=== PATIENT | male | born 1930 | race Caucasian/White ===

== ENCOUNTER 2016-08-28 10:31 | Emergency (ER) | payer MEDICARE, OTHER ==
--- NOTE | 2016-08-28 12:21 | RAD ---
HISTORY: Right-sided pain COMPARISONS: August 03, 2016 TECHNIQUE: Multiple transverse and longitudinal ultrasound images were obtained of the right lower extremity from the level of the common femoral vein inferiorly through to the infrapopliteal veins using grayscale, color Doppler, and spectral Doppler imaging with and without compression and with augmentation. Comparison images were obtained of the contralateral common femoral vein. FINDINGS: VEINS: The venous system of the right lower extremity is compressible throughout its course, with normal flow on color Doppler imaging and normal response to augmentation on spectral Doppler imaging. SOFT TISSUES: Unremarkable. OTHER FINDINGS: None. IMPRESSION: NO RIGHT LOWER EXTREMITY DEEP VEIN THROMBOSIS
[2016-08-28] MEDS ORDERED: Acetaminop/Codeine 30 MG TAB* 1 TAB (300 MG/30 MG) PO ONE (12:30)
[2016-08-28 12:41] LABS: Add Diff/Slide Review? Slide Review Added; Comments Flag Yes; Hematocrit 49 % (42-52); Hemoglobin 16.1 g/dl (14.0-18.0); Mean Corpuscular HGB Conc 33 g/dl (31-36); Mean Corpuscular Hemoglobin 28 pg (27-31); Mean Corpuscular Volume 85 fL (80-94); Mean Platelet Volume 8 um3 (7.4-10.4); Red Blood Count 5.78 10^6/ul (4.0-5.4); Red Cell Distribution Width 17 % (10.5-15); White Blood Count 9.9 10^3/ul (3.5-10.8)
[2016-08-28 12:54] LABS: Potassium 4.4 mmol/L (3.5-5.0)
--- NOTE | 2016-08-28 13:22 | RAD ---
HISTORY: History of cancer, pain with walking COMPARISONS: CT dated August 01, 2016 VIEWS: 7, Frontal view of the pelvis with frontal and frog-leg views of the right hip with frontal and lateral views of the right femur FINDINGS: BONE DENSITY: Normal. BONES: There is a lytic lesion of the femoral head measuring approximately 4.7 cm in size. JOINTS: There is moderate osteoarthritis of right hip with mild osteoarthritis of the right knee ALIGNMENT: There is no dislocation. SOFT TISSUES: Unremarkable. OTHER FINDINGS: Degenerative changes are noted of the spine IMPRESSION: LYTIC LESION OF THE RIGHT FEMORAL HEAD CONSISTENT WITH THE HISTORY OF METASTATIC DISEASE. OSTEOARTHRITIS. NO APPRECIABLE FRACTURE. IF THERE IS PERSISTENT CLINICAL CONCERN FOR FRACTURE, CONSIDER FURTHER EVALUATION WITH MRI OF THE AREA OF CONCERN
[2016-08-28 13:35] LABS: BUN/Creatinine Ratio 18.9 (8-20); Calcium 9.6 mg/dL (8.6-10.3); EGFR African American 66.6 (>60); EGFR Non-African American 51.8 (>60)
--- NOTE | 2016-08-28 13:56 | ED ---
Erin Rainey Claudia, scribed for Bozena Pratt MD on 08/28/16 at 1149 . Lower Extremity - HPI Summary HPI Summary: 85 year old male presents with right upper leg pain extending to right knee. Pt notes significant increase of pain after his PT session on Monday. PT notes that it has gotten progressively worse over the past few days. Pt notes the pain is located at the knee and at the groin. Pt states the pain is aggravated with movement and ambulation which impedes his walking. little discomfort when supine. No fall, no direct trauma. Pt saw WELDING OPERATOR at PCP and ave him Rx for topical salve and Aleive which has not alleviated his Sx. Pt denies fever, chills and mechanical fall. Pt took Aleve at 0730am. PMHx of kidney CA is noted with know mets to liver and right kidney noted. Pt denies any CA to his bones that he knows of. - History of Current Complaint Chief Complaint: EDExtremityLower Stated Complaint: RIGHT LEG PAIN Time Seen by Provider: 08/28/16 10:45 Hx Obtained From: Patient Mechanism Of Injury: Unknown Onset/Duration: Days Severity Initially: Moderate Severity Currently: Moderate Pain Intensity: 2 Pain Scale Used: 0-10 Numeric Timing: Intermittent, Lasting Days Location: Is Discrete @ - right thigh Character Of Pain: Aching Aggravating Factor(s): Standing, Ambulation, Movement Alleviating Factor(s): Rest Able to Bear Weight: No - Risk Factors Gout Risk Factors: Negative DVT Risk Factors: Negative Septic Arthritis Risk Factor: Negative - Allergies/Home Medications Allergies/Adverse Reactions: Allergies Allergy/AdvReac Type Severity Reaction Status Date / Time Penicillins Allergy DIZZY, Verified 04/27/16 09:45 DISORIENTED HAYFEVER-SEASONAL Allergy POST NASAL Uncoded 04/27/16 09:45 DRIP PMH/Surg Hx/FS Hx/Imm Hx Previously Healthy: Yes Endocrine/Hematology History: Denies: Hx Anticoagulant Therapy, Hx Diabetes, Hx Systemic Lupus Erythematosus, Hx Thyroid Disease Cardiovascular History: Reports: Hx Hypertension - meds in use Denies: Hx Congestive Heart Failure, Hx Pacemaker/ICD, Other Cardiovascular Problems/Disorders Respiratory History: Reports: Hx Pneumonia, Hx Seasonal Allergies, Other Respiratory Problems/Disorders - hx pneumonia in december GI History: Denies: Other GI Disorders History: Reports: Hx Benign Prostatic Hyperplasia, Hx Kidney Stones - 15 YEARS AGO NONE SINCE, Other Problems/Disorders - ENLARGED PROSTATE, LEFT NEPHRECTOMY, BPH, urgency Denies: Hx Dialysis, Hx Renal Disease Musculoskeletal History: Reports: Hx Bursitis - BILATERAL SHOULDER YEARS AGO, NO PROBLEM NOW Denies: Hx Arthritis, Hx Rheumatoid Arthritis, Hx Osteoporosis Sensory History: Reports: Hx Contacts or Glasses Denies: Hx Hearing Aid Opthamlomology History: Reports: Hx Contacts or Glasses Neurological History: Reports: Hx Headaches - not too bad, takes tylenol for them Psychiatric History: Denies: Hx Panic Disorder - Cancer History Cancer Type, Location and Year: kidney dx 10/2010 - Lt NEPHRECTOMY Hx Chemotherapy: Yes - current Hx Radiation Therapy: No Hx Palliative Cancer Treatment: No - Surgical History Surgery Procedure, Year, and Place: left nephrectomy 10/19 ;. inguinal hernia repair x 2 ;. powerport placement - [facility] [place] ; Hx Anesthesia Reactions: No - Immunization History Date of Tetanus Vaccine: Unk Date of Influenza Vaccine: Fall 2011 Infectious Disease History: No Infectious Disease History: Denies: Traveled Outside the [place] in Last 30 Days - Family History Known Family History: Positive: Hypertension - Social History Occupation: Retired Lives: With Family Alcohol Use: Daily Alcohol Amount: 1 glass wine Substance Use Type: Reports: None Smoking Status (MU): Former Smoker Type: Cigarettes Amount Used/How Often: 1 ppd Have You Smoked in the Last Year: No Review of Systems Negative: Fever, Chills Eyes: Negative Negative: Photophobia, Diplopia ENT: Negative Negative: Sore Throat Cardiovascular: Negative Negative: Chest Pain Respiratory: Negative Negative: Shortness Of Breath, Cough Gastrointestinal: Negative Negative: Vomiting, Diarrhea Genitourinary: Negative Positive: Other - right leg pain - femur to knee Skin: Negative Negative: Bruising Neurological: Negative Negative: Weakness Psychological: Normal All Other Systems Reviewed And Are Negative: Yes Physical Exam Triage Information Reviewed: Yes Vital Signs On Initial Exam: Initial Vitals Temp Pulse Resp BP Pulse Ox 97.9 F 71 20 136/69 99 08/28/16 10:37 08/28/16 10:37 08/28/16 10:37 08/28/16 10:37 08/28/16 10:37 Vital Signs Reviewed: Yes Appearance: Positive: Well-Appearing, No Pain Distress Skin: Positive: Warm, Skin Color Reflects Adequate Perfusion, Dry Head/Face: Positive: Normal Head/Face Inspection Eyes: Positive: Normal, EOMI, MORAIMA ENT: Positive: Pharynx normal, TMs normal Neck: Positive: Supple, Nontender, No Lymphadenopathy Respiratory/Lung Sounds: Positive: Clear to Auscultation, Breath Sounds Present , Decreased Breath Sounds Cardiovascular: Positive: Normal, RRR Abdomen Description: Positive: Nontender, No Organomegaly, Soft Bowel Sounds: Positive: Present Musculoskeletal: Positive: Normal, Other - + TTP medial aspect of right femur. + SLE with discomfort in proximal femur. + flex/ext knee + external rotation right hip with discomfort + flex/ext ankle Neurological: Positive: Normal, Sensory/Motor Intact, Alert, Oriented to Person Place, Time Psychiatric: Positive: Normal AVPU Assessment: Alert - [place] Coma Scale Best Eye Response: 4 - Spontaneous Best Motor Response: 6 - Obeys Commands Best Verbal Response: 5 - Oriented Coma Scale Total: 15 Diagnostics - Vital Signs Vital Signs Temp Pulse Resp BP Pulse Ox 08/28/16 10:37 97.9 F 71 20 136/69 99 - Laboratory Lab Results: Lab Results 08/28/16 08/28/16 Range/Units 12:30 12:30 WBC 9.9 (3.5-10.8) 10^3/ul RBC 5.78 H (4.0-5.4) 10^6/ul Hgb 16.1 (14.0-18.0) g/dl Hct 49 (42-52) % MCV 85 (80-94) fL MCH 28 (27-31) pg MCHC 33 (31-36) g/dl RDW 17 H (10.5-15) % Plt Count 180 (150-450) 10^3/ul MPV 8 (7.4-10.4) um3 Neut % (Auto) 76.5 (38-83) % Lymph % (Auto) 16.6 L (25-47) % [place] % (Auto) 4.2 (1-9) % Eos % (Auto) 1.8 (0-6) % Baso % (Auto) 0.9 (0-2) % Absolute Neuts (auto) 7.6 (1.5-7.7) 10^3/ul Absolute Lymphs (auto) 1.6 (1.0-4.8) 10^3/ul Absolute Monos (auto) 0.4 (0-0.8) 10^3/ul Absolute Eos (auto) 0.2 (0-0.6) 10^3/ul Absolute Basos (auto) 0.1 (0-0.2) 10^3/ul Absolute Nucleated RBC 0 10^3/ul Nucleated RBC % 0 Sodium 136 (133-145) mmol/L Potassium 4.4 (3.5-5.0) mmol/L Chloride 104 (101-111) mmol/L Carbon Dioxide 27 (22-32) mmol/L Anion Gap 7 (2-11) mmol/L BUN 25 H (6-24) mg/dL Creatinine 1.32 H (0.67-1.17) mg/dL Est GFR ( Amer) 66.6 (>60) Est GFR (Non-Af Amer) 51.8 (>60) BUN/Creatinine Ratio 18.9 (8-20) Glucose 115 H (70-100) mg/dL Calcium 9.6 (8.6-10.3) mg/dL Total Creatine Kinase 28 (10-223) U/L Result Diagrams: 08/28/16 12:30 08/28/16 12:30 Lab Statement: Any lab studies that have been ordered have been reviewed, and results considered in the medical decision making process. - Radiology FEMUR XRAY Xray Interpretation: Positive (See Comments) - LYTIC LESION OF THE RIGHT FEMORAL HEAD CONSISTENT WITH THE HISTORY OF METASTATIC DISEASE. OSTEOARTHRITIS. NO APPRECIABLE FRACTURE. IF THERE IS PERSISTENT CLINCAL CONCERN FOR FRACTURE, CONSIDER FURTHER EVALUATION WITH MRI OF THE AREA OF CONCERN. Radiology Interpretation Completed By: Radiologist HIP PELVIS XRAY Xray Interpretation: Positive (See Comments) - MPRESSION: LYTIC LESION OF THE RIGHT FEMORAL HEAD CONSISTENT WITH THE HISTORY OF METASTATIC DISEASE. OSTEOARTHRITIS. NO APPRECIABLE FRACTURE. IF THERE IS PERSISTENT CLINICAL CONCERN FOR FRACTURE, CONSIDER FURTHER EVALUATION WITH MRI OF THE AREA OF CONCERN < Electronically signed by Yasmany Liang MD in [place]> 08/28/16 1318 Dictated By: Yasmany Liang MD Dictated Date/Time: 08/28/16 1318 Transcribed Date/ Time: 08/28/16 1316 Radiology Interpretation Completed By: Radiologist - CT PELVIS CT CT Interpretation Completed By: Radiologist - CIRCUMSCRIBED LESION OF THE RIGHT FEMORAL HEAD EXTENDING TO THE ARTICUALR SURFACE MOST CONSISTENT WITH METASTATIC DISEASE GIVEN THE HISTORY. THERE IS MILD DEPRESSION OF THE ARTICUALR SURFACE ALONG THE LESION SUGGESTIVE OF A MINIMALLY DISPLACED FRACTURE. - Additional Comments Diagnostic Additional Comments: VENOUS DOPPLER STUDY: NO RIGHT LOWER EXTREMITY DEEP VEIN THROMBOSIS. Re-Evaluation - Re-Evaluation 1 Re-Evaluation Time: 13:16 Change: Improved - Pt notes pain is resolved REviewed imaging with pt - has lytic lesion in femoral head Spoke with Dr. Liang - will get CT for ?occult fx Pt states agreement with plan 2 Re-Evaluation Time: 14:41 Comment: Further care and transfer is discussed with pt and family. Lower Extremity Course/Dx - Course Assessment/Plan: Pt with progressive right hip pain since Wed No trauma. Pt with h/o CA. Pt taken alleve and topical ointment without relief - Diagnoses Provider Diagnoses: Metastatic bone cancer - Physician Notifications Discussed Care of Patient With: DISCUSSED CARE OF PT WITH DR. LIANG(RADIOLOGIST ) WHOM RECOMMENDS A CT. DISCUSSED CARE OF PATIENT WITH DR. PRITCHARD. 1420 SHE RECOMMENDS CONSULT WITH ORTHOPEDICS. PAGE TO [facility]TH[facility] IS MADE 14:22. DISCUSSED CARE OF PT WITH DR. SNEED. 1430. PER DR. NEWMAN PT NEEDS TO BE [facility]. 1440 PT AND PREFER [facility]. 1515 Call back from [facility] - Pt accepted to ED - Dr. Calix. Pt and updated and in agreement withplan Instructed by Provider To: Transfer - oncology ortho Discharge - Discharge Plan Condition: Stable Disposition: TRANS HIGHER LVL OF CARE FAC Discharge Disposition Comment: TRANSFER TO [facility] Referrals: Jake Cordova MD [Primary Care Provider] - The documentation as recorded by the Erin jeter Claudia accurately reflects the service I personally performed and the decisions made by me, Bozena Pratt MD.
--- NOTE | 2016-08-28 14:07 | RAD ---
HISTORY: Hip pain, lytic lesion COMPARISONS: CT dated August 01, 2016 TECHNIQUE: Multiple contiguous axial CT images are obtained of the pelvis, with coronal and sagittal multiplanar reconstructions, without intravenous contrast administration. FINDINGS: BONE DENSITY: There is diffuse osteopenia. BONES: There is a circumscribed lytic lesion involving the articular surface of the right femoral head measuring approximately 3.4 x 2.4 x 3.5 cm in size. There is depression of the articular surface overlying the lytic lesion suggestive of a minimally displaced fracture. JOINTS: There is moderate osteoarthritis of the right hip with mild osteoarthritis of the left hip MUSCULATURE: Unremarkable ALIGNMENT: There is no dislocation. SOFT TISSUES: There is stable soft tissue density within the right hemipelvis as described on the previous examination. The prostate gland is enlarged. There is atherosclerosis of the aorta. OTHER FINDINGS: None. IMPRESSION: CIRCUMSCRIBED LESION OF THE RIGHT FEMORAL HEAD EXTENDING TO THE ARTICULAR SURFACE MOST CONSISTENT WITH METASTATIC DISEASE GIVEN THE HISTORY OF MALIGNANCY. THERE IS MILD DEPRESSION OF THE ARTICULAR SURFACE ALONG THE LESION SUGGESTIVE OF A MINIMALLY DISPLACED FRACTURE.
[2016-08-28 16:36] VITALS: BP 146/76
== END 2016-08-28 16:35 | disposition short-term general hospital (02) ==
LOC: ED 10:31
DX: C41.9 Malignant neoplasm of bone and articular cartilage, unspecified (principal); M25.561 Pain in right knee; Z87.891 Personal history of nicotine dependence
CPT/HCPCS: 36415; 72192; 80048; 82550; 85025; 99283; A9270-GY

== ENCOUNTER 2016-09-05 09:40 | Inpatient (IN) | payer MEDICARE, OTHER ==
[2016-09-05] MEDS ORDERED: Magnesium Hydroxide LIQ* 30 ML UDC PO PRN (12:11)
[2016-09-05] MEDS ORDERED: oxyCODONE TAB* 5 MG TAB PO PRN (12:21)
[2016-09-05] MEDS: Heparin VIAL(*) 5000 UNITS/ML VIAL (FIVE THOUSAND) SUBCUT SCH ×2 (15:41→21:06)
[2016-09-05] MEDS: Latanoprost 0.005%* 2.5 ml BTL BOTH EYES SCH (18:26)
[2016-09-05] MEDS: Docusate CAP* 100 MG PO SCH (21:02)
[2016-09-05] MEDS: cloNIDine TAB* 0.1 MG PO SCH (21:02)
[2016-09-05] MEDS: Senna TAB PO PRN (21:03)
--- NOTE | 2016-09-05 23:38 | HP ---
ADMISSION HISTORY AND PHYSICAL: DATE OF ADMISSION: 09/05/16 REASON FOR ADMISSION: Hemiarthroplasty, right femur for pathologic fracture. HISTORY OF ILLNESS: Kermit Morales is an 85-year-old white male. He has a medical history significant for renal cell cancer, which was diagnosed 6 years ago. He had a left nephrectomy done 6 years ago. He follows up with Dr. Maryellen Toledo. He had a recent CAT of his chest, abdomen, and pelvis in July. The patient was having difficulty walking. He went to see his primary care doctor. Dr. Cordova, however, was out of town and he saw one of the nurse practitioners there. They thought that the pain might be muscular and so ordered physical therapy. The pain, however, continued to worsen with time. He presented to the emergency room August 28. In the emergency room, he had x-rays of his right hip as well as a CAT scan of his pelvis that showed metastatic lesions to his femur. He was transferred to [facility] in [place]. He was seen by Dr. Shay Dan. He was taken to the operating room on 08/31/16 and underwent a resection of the bone lesion and a right long stem cemented hemiarthroplasty. After surgery, the patient was noted to have hematuria. He had a Urology consult done. No special treatment was done. It was recommended that he follow up with Urology. The patient also was seen by physical therapy and occupational therapy. They noted he required a lot of assistance and was having trouble mobilizing. He was felt to have PT and OT needs. He is now being admitted for inpatient rehab , so he may return to independent living. PAST MEDICAL HISTORY: Significant for the aforementioned renal cell cancer. He has been tried on various immunotherapies and chemotherapies and has had a left nephrectomy. CURRENT MEDICATIONS: Include, 1. Norvasc. 2. Clonidine. 3. Heparin subcutaneously. 4. Flomax. 5. Xalatan eye drops. 6. Flonase. ALLERGIES: The patient has allergies listed to PENICILLIN. SOCIAL HISTORY: He is a nonsmoker. He has a half a glass of wine a day. He lives with his in a one-story house. He has a daughter and son living nearby. REVIEW OF SYSTEMS: The patient reports no current shortness of breath or chest pain. PHYSICAL EXAM: VITAL SIGNS: The patient's temperature is 98.0, blood pressure 154/48, pulse 96, respirations 18. HEENT: His extraocular movements are intact. Tongue is midline. NECK: Supple with no lymphadenopathy. LUNGS: Sound clear to auscultation bilaterally. HEART: Sounds are regular. S1 and S2 were audible. ABDOMEN: Soft and nontender. EXTREMITIES: His right hip has a wound, which is clean and dry. Peripheral pulses are intact. NEUROLOGIC: He is awake, alert, and oriented. Muscle strength 5/5 in both upper and lower extremities. His right lower extremity has 3/5 secondary to pain. FUNCTIONAL EXAM: He transfers with mod-assist of one person. ASSESSMENT: Status post right hemiarthroplasty for metastatic cancer. PLAN: Integrate him into a comprehensive and therapeutic rehab program with the following goals: 1. Physical therapy will work with the patient. They are going to work on functional transfer training, ambulation training with a walker. 2. Occupational therapy will see the patient, work on his activities of daily living, including toileting and toilet transfers. 3. Heparin for DVT prophylaxis. 4. Adequate analgesia. 5. His bowels will be regulated. 6. director of cloud services will be closely involved to make sure that any services and equipment the patient requires will be in place prior to discharge. 7. Advanced directives: The patient is a full code. His is his surrogate decision maker. 8. Oncology followup as needed. 9. Home with appropriate services. ESTIMATED LENGTH OF STAY: 12 to 14 days. [id number]/[facility] #: [id number] MTDD
[2016-09-06] MEDS: Acetaminophen TAB* 325 MG PO PRN ×3 (04:19→21:04)
[2016-09-06] MEDS: Heparin VIAL(*) 5000 UNITS/ML VIAL (FIVE THOUSAND) SUBCUT SCH ×3 (06:30→21:02)
[2016-09-06] MEDS: cloNIDine TAB* 0.1 MG PO SCH ×2 (08:44→21:02)
[2016-09-06] MEDS: Aspirin EC Low Dose* 81 MG TAB.EC PO SCH (08:44)
[2016-09-06] MEDS: Docusate CAP* 100 MG PO SCH ×2 (08:44→21:34)
[2016-09-06] MEDS: Fluticasone NASAL SPRAY 50MCG* 16 gm SPRAY BTL BOTH NARES SCH (08:44)
[2016-09-06] MEDS: amLODIPine TAB* 5 MG PO SCH (08:44)
[2016-09-06] MEDS: Tamsulosin CAP* 0.4 MG PO SCH (08:44)
--- NOTE | 2016-09-06 12:45 | PMRUTEAM ---
PMRU: Goals Current Status: Nursing: Current Status Skin Deviations [Right Upper Previous Access Point Chest] Skin Deviations [Right Leg] Rash Skin Deviations [Left Groin] Previous Access Point Skin Deviations [Right Hip] Incision Skin Deviation Description [ infusion port. Right Upper Chest] Physical Therapy: Current Status Bed Mobility Assistance Independent Transfer Moblility Assistance Supervision,Contact Guard Assist,Min Assist Transfer/Bed Mobility Rolling Walker Recommended Devices Ambulation Assistance Supervision,Contact Guard Assist Ambulation Assistive Devices Rolling Walker Number of Feet Patient 20' x 2 Ambulated Ambulation Comment Short step reciprocal type gait pattern. Stairs Assistance Not Tested Stairs Recommended Devices One Rail Number of Stairs 1 Occupational Therapy: Current Status Upper Body Dressing Supervision,Min Assist Lower Body Dressing Total Assist Bathing Mod Assist Toileting Total Assist Toilet Transfer Min Assist Eating Independent Social Work: Current Status Discharge Plan return home with home care svs and family support Potential for Family Training pt's family is involved and supportive Anticipated Discharge Home Destination Discharge With home care svs and family support Goals: Physical Therapy: Initial Goals Bed Mobility Assistance Independent Transfer Mobility Assistance Independent Transfer/Bed Mobility Rolling Walker Recommended Devices Ambulation Independent Ambulation Recommended Devices Rolling Walker Ambulation Distance 150 Stairs Assistance Independent Stair Recommended Devices One Rail Number of Stairs 2 Physical Therapy: Updated Goals Bed Mobility Assistance Independent Transfer Mobility Assistance Independent Transfer/Bed Mobility Rolling Walker Recommended Devices Ambulation Distance (ft) 150 Stairs Assistance Independent Stairs Recommended Devices One Rail Number of Stairs 3 Occupational Therapy: Initial Goals Goals to be Completed in (Days 7-10 ) Upper Body Bathing Routine Independent Lower Body Bathing Routine Modified Independent with Upper Body Dressing Routine Independent Lower Body Dressing Routine Modified Independent with Toilet Hygeine and Clothing Modified Independent with Management Routine Toilet Transfer Routine Modified Independent with Step-In Shower Transfer Modified Independent with Routine Tub Transfer Routine Modified Independent with Functional Transfers for ADL Modified Independent with Grooming Routine Independent Feeding Routine Independent Social Work: Goals Discharge Plan return home with home care svs and family support Potential for Family Training pt's family is involved and supportive Anticipated Discharge Home Destination Discharge With home care svs and family support Care Plan: Care Plan DVT Prophylaxis- Improve/Maintain Start: 09/05/16 21:18 Freq: QSHIFT Status: Active Target: Activity Type Activity Date Activity User E-Sign Co-Sign Detail Recorded Client Recorded Date Recorded By Document 09/06/16 00:40 [id number] 09/06/16 00:41 [id number] 09/06/16 00:40 PMRU Outcome: DVT Prophylaxis Outcome/Goals Remains Free of DVT TEDS Stockings on Every AM, Off at HS Discharge Planning - Improve/Maintain Start: 09/05/16 21:18 Freq: QSHIFT Status: Active Target: Activity Type Activity Date Activity User E-Sign Co-Sign Detail Recorded Client Recorded Date Recorded By Document 09/06/16 00:40 [id number] 09/06/16 00:41 [id number] 09/06/16 00:40 PMRU Outcome: Discharge Planning Update Patient Family No Outcome/Goals Demonstrates Understanding of Discharge Plan Education-Improve/Maintain Start: 09/05/16 21:18 Freq: QSHIFT Status: Active Target: Activity Type Activity Date Activity User E-Sign Co-Sign Detail Recorded Client Recorded Date Recorded By Document 09/06/16 00:40 [id number] 09/06/16 00:41 [id number] 09/06/16 00:40 PMRU Outcome: Education Outcome/Goals Demonstrate/ Verbalize Understanding of Written Discharge Instructions Demonstrates Skills Encourage Questions /GI-Improve/Maintain Start: 09/05/16 21:18 Freq: QSHIFT Status: Active Target: Activity Type Activity Date Activity User E-Sign Co-Sign Detail Recorded Client Recorded Date Recorded By Document 09/06/16 00:40 [id number] 09/06/16 00:41 [id number] 09/06/16 00:40 PMRU Outcome: Genitourinary/ Gastrointestinal Genitourinary- Outcome/Goals Maintain/ Achieve Urinary Continence Remain Free of Hospital- Acquired UTI Gastrointestinal-Outcome/Goals Maintain/ Achieve Bowel Regularity in Accordance with Pt's Baseline Prevent Constipation Laxatives as Ordered Mobility- Improve/Maintain Start: 09/05/16 15:06 Freq: QSHIFT Status: Active Target: Activity Type Activity Date Activity User E-Sign Co-Sign Detail Recorded Client Recorded Date Recorded By Document 09/05/16 15:06 [id number] 09/05/16 15:08 09/05/16 15:06 PMRU Outcome: Mobility Physical Therapy Evaluation and Yes Treatment Activity OOB with Assistance Yes WBAT Yes: r le Device Yes: rolling walker Assistance Yes: sammie Patient to be seen 5x/wk for 60-120 min/ Therex day for: Mobility Training Gait Training Outcome/Goals Maintain/ Achieve Baseline Mobility Status Improve Mobility Status Demonstrates Proper Use of Assistive Devices Free from Complications of Immobility Bed Mobility Yes: independent Transfers Yes: mod independent with rolling walker Gait x ft Yes: mod independent with rolling walker 150ft Up/Down Stairs Yes: 2 steps independent with rail With HEP Yes: independent recall thr precautions Safety- Improve/Maintain Start: 09/05/16 21:18 Freq: QSHIFT Status: Active Target: Activity Type Activity Date Activity User E-Sign Co-Sign Detail Recorded Client Recorded Date Recorded By Document 09/06/16 00:40 [id number] 09/06/16 00:41 [id number] 09/06/16 00:40 PMRU Outcome: Safety Outcome/Goals Remain Free of Injury or Harm Cooperates with Safety Measures for Least Restrictive Environment Prevent Falls/ Injury Equipment Needed Skin- Improve/Maintain Start: 09/05/16 21:18 Freq: QSHIFT Status: Active Target: Activity Type Activity Date Activity User E-Sign Co-Sign Detail Recorded Client Recorded Date Recorded By Document 09/06/16 00:40 [id number] 09/06/16 00:41 [id number] 09/06/16 00:40 PMRU Outcome: Skin Skin Risk Level Medium Skin Orders Dressing Change Turn/Position q2hr While in Bed Outcome/Goals Maintain/ Improve Skin Intergrity Surgical Incisions Healing Medicine Note: Length of Stay: 8 days Anticipated Discharge Destination: Home Tentative Discharge Date: September 14, 2016 Discharged to: Home
[2016-09-06] MEDS: Latanoprost 0.005%* 2.5 ml BTL BOTH EYES SCH (18:47)
[2016-09-07] MEDS: Heparin VIAL(*) 5000 UNITS/ML VIAL (FIVE THOUSAND) SUBCUT SCH ×3 (05:12→21:21)
[2016-09-07 07:54] LABS: Hematocrit 30 % (42-52); Hemoglobin 9.9 g/dl (14.0-18.0); Mean Corpuscular HGB Conc 33 g/dl (31-36); Mean Corpuscular Hemoglobin 28 pg (27-31); Mean Corpuscular Volume 86 fL (80-94); Mean Platelet Volume 8 um3 (7.4-10.4); Red Cell Distribution Width 16 % (10.5-15); White Blood Count 7.7 10^3/ul (3.5-10.8)
[2016-09-07 08:05] LABS: Albumin 2.9 g/dL (3.2-5.2); BUN/Creatinine Ratio 18.8 (8-20); Calcium 8.5 mg/dL (8.6-10.3); EGFR African American 90.7 (>60); EGFR Non-African American 70.5 (>60); Globulin 2.6 g/dL (2-4); Potassium 3.7 mmol/L (3.5-5.0); Total Bilirubin 0.9 mg/dL (0.2-1.0); Total Protein 5.5 g/dL (6.4-8.9)
[2016-09-07] MEDS: Fluticasone NASAL SPRAY 50MCG* 16 gm SPRAY BTL BOTH NARES SCH (08:13)
[2016-09-07] MEDS: Docusate CAP* 100 MG PO SCH ×2 (08:14→21:21)
[2016-09-07] MEDS: Tamsulosin CAP* 0.4 MG PO SCH (08:14)
[2016-09-07] MEDS: amLODIPine TAB* 5 MG PO SCH (08:14)
[2016-09-07] MEDS: Aspirin EC Low Dose* 81 MG TAB.EC PO SCH (08:14)
[2016-09-07] MEDS: cloNIDine TAB* 0.1 MG PO SCH ×2 (08:14→21:21)
[2016-09-07 08:31] LABS: Add Diff/Slide Review? Slide Review Added; Comments Flag Yes
--- NOTE | 2016-09-07 12:49 | PN ---
Progress Note - Progress Note SOAP: Subjective: []pain well controlled. tired this morning but worked hard with PT earlier in the day. Objective: Vital Signs Temp Pulse Resp BP Pulse Ox 98.7 F 84 18 144/55 96 09/07/16 05:15 09/07/16 05:15 09/07/16 05:15 09/07/16 05:15 09/07/16 08:16 sitting up in chair in NAD perr eomi op moist CTA bl s1 s2 nl port site clean soft nt +bs well healing hip trace LE edema A+O x 3, grossly nonfocal Laboratory Results - last 24 hr 09/07/16 09/07/16 07:12 07:12 WBC 7.7 RBC 3.50 L Hgb 9.9 L Hct 30 L MCV 86 MCH 28 MCHC 33 RDW 16 H Plt Count 241 MPV 8 Neut % (Auto) 62.2 Lymph % (Auto) 23.2 L [place] % (Auto) 9.1 H Eos % (Auto) 4.8 Baso % (Auto) 0.7 Absolute Neuts (auto) 4.8 Absolute Lymphs (auto) 1.8 Absolute Monos (auto) 0.7 Absolute Eos (auto) 0.4 Absolute Basos (auto) 0.1 Absolute Nucleated RBC 0 Nucleated RBC % 0 Sodium 132 L Potassium 3.7 Chloride 101 Carbon Dioxide 27 Anion Gap 4 BUN 19 Creatinine 1.01 Est GFR ( Amer) 90.7 Est GFR (Non-Af Amer) 70.5 BUN/Creatinine Ratio 18.8 Glucose 122 H Calcium 8.5 L Total Bilirubin 0.90 AST 15 ALT 11 Alkaline Phosphatase 58 Total Protein 5.5 L Albumin 2.9 L Globulin 2.6 Albumin/Globulin Ratio 1.1 Assessment: 85 yo M w metastatic RCC sp multiple lines of therapy, most recently on observation alone as symptomatic, now with metastatic disease to his right femur sp embolization and rodding. We discussed this at length. I have recommended consideration of palliative RT. I have taken the liberty to consult Dr. Cid. In terms of systemic therapy options, there are not many options left, though I do think it would be reasonable to try temsirolimus. I will review this with him in the office after he completes his RT. In terms of his urinary retention, he is pending a consultation from Dr. Mead. I would like to see him in my office at the [facility] on 09/16 at 820 am. Please provide him this apt on discharge.
[2016-09-07] MEDS: Latanoprost 0.005%* 2.5 ml BTL BOTH EYES SCH (18:22)
[2016-09-07] MEDS: diPHENhydraMINE PO* 25 MG PO PRN (21:23)
[2016-09-08] MEDS: Heparin VIAL(*) 5000 UNITS/ML VIAL (FIVE THOUSAND) SUBCUT SCH ×3 (05:33→20:58)
[2016-09-08] MEDS: Tamsulosin CAP* 0.4 MG PO SCH (08:06)
[2016-09-08] MEDS: cloNIDine TAB* 0.1 MG PO SCH ×2 (08:06→20:55)
[2016-09-08] MEDS: Docusate CAP* 100 MG PO SCH ×2 (08:06→20:56)
[2016-09-08] MEDS: Aspirin EC Low Dose* 81 MG TAB.EC PO SCH (08:06)
[2016-09-08] MEDS: amLODIPine TAB* 5 MG PO SCH (08:06)
[2016-09-08] MEDS: Fluticasone NASAL SPRAY 50MCG* 16 gm SPRAY BTL BOTH NARES SCH ×2 (08:07→21:00)
--- NOTE | 2016-09-08 15:16 | RADMED ---
CC: Dr. Toledo RADIATION ONCOLOGY INPATIENT CONSULTATION NOTE: DATE OF SERVICE: 09/07/16 REFERRING PHYSICIAN: Maryellen Toledo MD DIAGNOSIS: Metastatic renal cell carcinoma, AJCC stage IV. HISTORY OF PRESENT ILLNESS: Mr. Morales is an 85-year-old gentleman with renal cell carcinoma status post left nephrectomy in 2010. He developed metastatic disease for which, he has received systemic therapy, most recently nivolumab last year. He was managing reasonably well up unitl recently, but developed right hip pain, which became suddenly severe leading him to seek medical attention including pelvic CT from 08/28/16, which identified destructive lesion in the right femoral head with substantial cortical destruction. He was transferred to [place] and underwent surgery with stabilization what sounds like internal fixation, complete records requested. He has been admitted to the rehab unit, and is referred for discussion of postoperative radiation therapy for metastatic renal cell carcinoma involving the right hip. His pain is much better, but his mobility is substantially limited with this new problem. PAST MEDICAL HISTORY: Renal cell carcinoma, as in the history of present illness. MEDICATIONS: As per the inpatient records. ALLERGIES: PENICILLIN. SOCIAL HISTORY: He is accompanied by his daughter who is quite supportive. He is a nonsmoker and drinks alcohol occasionally. REVIEW OF SYSTEMS: A complete review of systems is obtained from the patient, negative for additional significant findings. PHYSICAL EXAMINATION: General: He is awake, alert, oriented, in no acute distress. Vital Signs: Temperature 97.5, pulse rate 85, respiratory rate 18, oxygen saturation 96% on room air, and blood pressure 130/48. HEENT: Normocephalic, atraumatic. Sclerae anicteric. Neck: Supple. Full range of motion. Midline trachea. No mass palpable in the neck or thyroid. Lungs: Clear. Cardiovascular: S1, S2. Regular. Abdomen: Soft and nontender. Extremities: Postsurgical right hip. PATHOLOGY AND RADIOLOGY: Reviewed, as in the history of present illness. ASSESSMENT AND PLAN: Mr. Morales is an 85-year-old gentleman with metastatic renal cell carcinoma and recent stabilizing surgery for destructive lesion in the right femoral head. I did review his history as well as the pathologic and radiographic findings, and discussed at some length with the patient, as he is already well informed and familiar. We reviewed the management for metastatic disease, and considerations for postoperative radiation therapy. I did explain the logistics and rationale for that treatment, risks, benefits, alternatives as well as the acute and long-term frequent and uncommon toxicities. I did answer the patient's and his daughter's questions to the best of my ability. He is inclined to proceed with radiation therapy as discussed, and will be scheduled for CT simulation to facilitate treatment planning. For his situation , I would recommend 300 cGy per fraction, tentative start date around 09/19/16. Thank you for giving me the opportunity to participate in the care of this very pleasant gentleman. [id number]/[facility] #: [id number] MTDD
[2016-09-08] MEDS: Latanoprost 0.005%* 2.5 ml BTL BOTH EYES SCH (18:23)
[2016-09-08] MEDS: Senna TAB PO PRN (20:55)
[2016-09-09] MEDS: diPHENhydraMINE PO* 25 MG PO PRN (00:05)
[2016-09-09] MEDS: Heparin VIAL(*) 5000 UNITS/ML VIAL (FIVE THOUSAND) SUBCUT SCH ×3 (05:38→21:30)
[2016-09-09] MEDS: Aspirin EC Low Dose* 81 MG TAB.EC PO SCH (08:40)
[2016-09-09] MEDS: Docusate CAP* 100 MG PO SCH ×2 (08:40→21:30)
[2016-09-09] MEDS: Tamsulosin CAP* 0.4 MG PO SCH (08:40)
[2016-09-09] MEDS: amLODIPine TAB* 5 MG PO SCH (08:40)
[2016-09-09] MEDS: cloNIDine TAB* 0.1 MG PO SCH ×2 (08:41→21:30)
[2016-09-09] MEDS: Latanoprost 0.005%* 2.5 ml BTL BOTH EYES SCH (18:28)
[2016-09-09] MEDS: Fluticasone NASAL SPRAY 50MCG* 16 gm SPRAY BTL BOTH NARES SCH (21:36)
[2016-09-10] MEDS: Acetaminophen TAB* 325 MG PO PRN ×2 (00:08→08:42)
[2016-09-10] MEDS: Heparin VIAL(*) 5000 UNITS/ML VIAL (FIVE THOUSAND) SUBCUT SCH ×3 (06:49→22:21)
[2016-09-10] MEDS: amLODIPine TAB* 5 MG PO SCH (08:57)
[2016-09-10] MEDS: Aspirin EC Low Dose* 81 MG TAB.EC PO SCH (08:57)
[2016-09-10] MEDS: Tamsulosin CAP* 0.4 MG PO SCH (08:58)
[2016-09-10] MEDS: cloNIDine TAB* 0.1 MG PO SCH ×2 (08:58→21:18)
[2016-09-10] MEDS: Docusate CAP* 100 MG PO SCH ×2 (08:59→21:19)
[2016-09-10] MEDS: Latanoprost 0.005%* 2.5 ml BTL BOTH EYES SCH (18:11)
[2016-09-10] MEDS: diPHENhydraMINE PO* 25 MG PO PRN (21:19)
[2016-09-10] MEDS: Fluticasone NASAL SPRAY 50MCG* 16 gm SPRAY BTL BOTH NARES SCH (21:21)
[2016-09-11] MEDS: Heparin VIAL(*) 5000 UNITS/ML VIAL (FIVE THOUSAND) SUBCUT SCH ×3 (05:06→21:23)
[2016-09-11] MEDS: amLODIPine TAB* 5 MG PO SCH (08:03)
[2016-09-11] MEDS: Tamsulosin CAP* 0.4 MG PO SCH (08:04)
[2016-09-11] MEDS: Docusate CAP* 100 MG PO SCH ×2 (08:04→20:17)
[2016-09-11] MEDS: Aspirin EC Low Dose* 81 MG TAB.EC PO SCH (08:04)
[2016-09-11] MEDS: cloNIDine TAB* 0.1 MG PO SCH ×2 (08:04→20:17)
[2016-09-11] MEDS: Latanoprost 0.005%* 2.5 ml BTL BOTH EYES SCH (17:37)
[2016-09-11] MEDS: diPHENhydraMINE PO* 25 MG PO PRN (20:17)
[2016-09-11] MEDS: Senna TAB PO PRN (20:17)
[2016-09-11] MEDS: Fluticasone NASAL SPRAY 50MCG* 16 gm SPRAY BTL BOTH NARES SCH (20:19)
[2016-09-12] MEDS: Heparin VIAL(*) 5000 UNITS/ML VIAL (FIVE THOUSAND) SUBCUT SCH ×3 (05:39→21:27)
[2016-09-12] MEDS: Docusate CAP* 100 MG PO SCH ×2 (08:49→21:27)
[2016-09-12] MEDS: Tamsulosin CAP* 0.4 MG PO SCH (08:49)
[2016-09-12] MEDS: cloNIDine TAB* 0.1 MG PO SCH ×2 (08:49→21:27)
[2016-09-12] MEDS: amLODIPine TAB* 5 MG PO SCH (08:49)
[2016-09-12] MEDS: Aspirin EC Low Dose* 81 MG TAB.EC PO SCH (08:49)
[2016-09-12] MEDS: Acetaminophen TAB* 325 MG PO PRN (11:34)
--- NOTE | 2016-09-12 15:50 | RAD ---
Indication: Metastatic renal cell carcinoma to the hip and pelvis. Comparison: August 28, 2016 CT. Technique: Radiation simulation CT. 2.5 mm contiguous axial sections were obtained through the pelvis and proximal femurs. Report: Artifact from RIGHT hip resurfacing prosthesis which is new compared with the August 28, 2016 exam. The prosthesis occupies the region of lytic metastasis on prior CT. Probable postsurgical seroma or hematoma insinuating between the RIGHT gluteus mary jo and medius muscles measuring up to 3.0 cm AP by 4.5 cm transverse compared with the prior exam. No additional suspicious osseous lesions within the [id number]. Enlarged prostate. Moderately distended urinary bladder with small focus of gas; correlate for recent instrumentation. Symmetric seminal vesicles. No abnormality of the visualized pelvic bowel loops. Negative for ascites. 2.5 x 4.6 cm RIGHT external iliac lymph node is unchanged compared with a CT from August 01, 2016. Smaller metastatic lesion noted in the anterior LEFT pelvis measuring up to 2.4 x 2.1 cm without significant change. IMPRESSION: Radiation simulation CT pelvis as described.
[2016-09-12] MEDS: Latanoprost 0.005%* 2.5 ml BTL BOTH EYES SCH (18:16)
[2016-09-12] MEDS: Fluticasone NASAL SPRAY 50MCG* 16 gm SPRAY BTL BOTH NARES SCH (21:26)
[2016-09-13] MEDS: Heparin VIAL(*) 5000 UNITS/ML VIAL (FIVE THOUSAND) SUBCUT SCH ×3 (05:44→21:22)
[2016-09-13] MEDS: cloNIDine TAB* 0.1 MG PO SCH ×2 (08:27→21:21)
[2016-09-13] MEDS: amLODIPine TAB* 5 MG PO SCH (08:27)
[2016-09-13] MEDS: Aspirin EC Low Dose* 81 MG TAB.EC PO SCH (08:27)
[2016-09-13] MEDS: Tamsulosin CAP* 0.4 MG PO SCH (08:27)
[2016-09-13] MEDS: Docusate CAP* 100 MG PO SCH ×2 (08:27→21:21)
--- NOTE | 2016-09-13 12:44 | PMRUTEAM ---
PMRU: Goals Current Status: Nursing: Current Status Skin Deviations [Buttocks] Other Skin Deviations [Right Upper Other Chest] Skin Deviations [Right Leg] Incision Skin Deviations [Left Groin] Previous Access Point Skin Deviations [Right Hip] Incision Skin Deviation Description [ redness Buttocks] Skin Deviation Description [ portacath Right Upper Chest] Skin Deviation Description [ No drainage or redness noted. Well approximated. Left Groin] Skin Deviation Description [ Incision, fluid filled blister next to it. bandage Right Hip] changed Bladder Current Status zarco Bowel Current Status bowel meds given Nutrition Current Status appetite good Medication Current Status needs reinforcement Physical Therapy: Current Status Bed Mobility Assistance Not Tested Transfer Moblility Assistance Supervision Transfer/Bed Mobility Rolling Walker Recommended Devices Ambulation Assistance Supervision Ambulation Assistive Devices Rolling Walker Number of Feet Patient 160' Ambulated Ambulation Comment Short step reciprocal type gait pattern. Stairs Assistance Supervision Stairs Recommended Devices Two Rails Number of Stairs 5 Curb Not Tested Occupational Therapy: Current Status Upper Body Dressing Independent Lower Body Dressing Min Assist Bathing Supervision Toileting Supervision Toilet Transfer Supervision Shower Transfer Supervision Eating Independent Rec Therapy: Current Status Summary of Assessment and RT assessment complete, pt. is aware of RT Clinical Impression services and open to leisure visits. Treatment Goals Pt. will engage in leisure activities while on the unit. Treatment Plan Provide RT services and encourage involvement. Social Work: Current Status Discharge Plan return home with home care svs and family support Potential for Family Training pt's attended family training on 09/12 Anticipated Discharge Home Destination Discharge With VNS and family support Nutrition: Current Status Monitoring Pt with metastatic lesions femur s/p embolization and rodding. Hx renal cell ca. Note plan for palliative radiation, some chemo. At present pt is eating well (100%) and meeting needs, bowels regular. BG mildly elevated (122) but not significant considering pt's status/age 85. No specific intervention anticipated if pt's oral intake remains stable. Goals: Physical Therapy: Initial Goals Bed Mobility Assistance Independent Transfer Mobility Assistance Independent Transfer/Bed Mobility Rolling Walker Recommended Devices Ambulation Independent Ambulation Recommended Devices Rolling Walker Ambulation Distance 150 Stairs Assistance Independent Stair Recommended Devices One Rail Number of Stairs 2 Physical Therapy: Updated Goals Bed Mobility Assistance Independent Transfer Mobility Assistance Independent Transfer/Bed Mobility Rolling Walker Recommended Devices Ambulation Distance (ft) 150 Stairs Assistance Independent Stairs Recommended Devices One Rail Number of Stairs 3 Occupational Therapy: Initial Goals Goals to be Completed in (Days 7-10 ) Upper Body Bathing Routine Independent Lower Body Bathing Routine Modified Independent with Upper Body Dressing Routine Independent Lower Body Dressing Routine Modified Independent with Toilet Hygeine and Clothing Modified Independent with Management Routine Toilet Transfer Routine Modified Independent with Step-In Shower Transfer Modified Independent with Routine Tub Transfer Routine Modified Independent with Functional Transfers for ADL Modified Independent with Grooming Routine Independent Feeding Routine Independent Nursing: Goals Bladder Goal independent Bowel Goal independent Nutrition Goal eating 100% of all meals Medication Goal independent with pill box Nutrition: Goals Intervention Goals 1. Maintain adequate oral intake to support weight maintenance, maintenance of lean body mass and post-op recovery. 2. Maintain bowel regularity w/o constipation/ diarrhea. Social Work: Goals Discharge Plan return home with home care svs and family support Potential for Family Training pt's attended family training on 09/12 Anticipated Discharge Home Destination Discharge With VNS and family support Care Plan: Care Plan ADL's - Improve/Maintain Start: 09/05/16 21:18 Freq: DAILY Status: Active Target: Activity Type Activity Date Activity User E-Sign Co-Sign Detail Recorded Client Recorded Date Recorded By Document 09/12/16 15:00 [id number] 09/12/16 15:00 [id number] 09/12/16 15:00 PMRU Outcome: ADL's/ADL Transfers Orders/Interventions Occupational Therapy Evaluation & Treatment Communication Tool in Patient Room Device Yes Patient to receive OT 5x/wk for 60-120 Therex min/day Self Care Management Group Therapy UE/LE ADL's with Assist Yes: Kristian ADL Transfers with Assist Yes: Kristian Toileting: Transfers,Clothing Management Yes: Kristian ,Hygeine w/Assist Progression Toward Outcome/Goals Progressing Coping/Psych-Improve/Maintain Start: 09/07/16 16:20 Freq: DAILY Status: Active Target: Activity Type Activity Date Activity User E-Sign Co-Sign Detail Recorded Client Recorded Date Recorded By Document 09/13/16 10:14 [id number] 09/13/16 10:16 [id number] 09/13/16 10:14 PMRU Outcome: Coping/Psychosocial Coping Outcome/Goals Verbalization of Sense of Control Over Health Status Utilization of Appropriate Problem Solving Techniques Utilization of Available Support Systems Psychosocial Outcome/Goals Maintain/ Improve Emotional Health Cooperate/ Participate in Plan Other Outcome/Goals Pt not happy with fact of zarco being in, wanted to talk to Dr. Butler and Dr Iris Mead. Dr. Butler aware . Progression Toward Outcome/Goals - Progressing Coping Progression Toward Outcome/Goals - Progressing Psychosocial DVT Prophylaxis- Improve/Maintain Start: 09/05/16 21:18 Freq: DAILY Status: Active Target: Activity Type Activity Date Activity User E-Sign Co-Sign Detail Recorded Client Recorded Date Recorded By Document 09/13/16 10:14 [id number] 09/13/16 10:16 [id number] 09/13/16 10:14 PMRU Outcome: DVT Prophylaxis Outcome/Goals Remains Free of DVT Complies with DVT Prophylaxis /Treatment TEDS Stockings on Every AM, Off at HS Progression Toward Outcome/Goals Progressing Discharge Planning - Improve/Maintain Start: 09/05/16 21:18 Freq: DAILY Status: Active Target: Activity Type Activity Date Activity User E-Sign Co-Sign Detail Recorded Client Recorded Date Recorded By Document 09/13/16 10:14 [id number] 09/13/16 10:16 [id number] 09/13/16 10:14 PMRU Outcome: Discharge Planning Update Patient Family No Outcome/Goals Demonstrates Understanding of Discharge Plan Progression Toward Outcome/Goals Progressing Education-Improve/Maintain Start: 09/05/16 21:18 Freq: DAILY Status: Active Target: Activity Type Activity Date Activity User E-Sign Co-Sign Detail Recorded Client Recorded Date Recorded By Document 09/13/16 10:14 [id number] 09/13/16 10:16 [id number] 09/13/16 10:14 PMRU Outcome: Education Outcome/Goals Demonstrate/ Verbalize Understanding of Written Discharge Instructions Demonstrates Skills Encourage Questions Other Outcome/Goals Hip precautions reviewed with pt by all staff Progression Toward Outcome/Goals Progressing Outcome/Goals Met Comment Reminded pt about HIP precautions /GI-Improve/Maintain Start: 09/05/16 21:18 Freq: DAILY Status: Active Target: Activity Type Activity Date Activity User E-Sign Co-Sign Detail Recorded Client Recorded Date Recorded By Document 09/13/16 10:14 [id number] 09/13/16 10:16 [id number] 09/13/16 10:14 PMRU Outcome: Genitourinary/ Gastrointestinal Genitourinary- Outcome/Goals Maintain/ Achieve Urinary Continence Remain Free of Hospital- Acquired UTI Gastrointestinal-Outcome/Goals Maintain/ Achieve Bowel Regularity in Accordance with Pt's Baseline Remain Free of Emesis Prevent Constipation Laxatives as Ordered Progression Toward Outcome/Goals - Progressing Progression Toward Outcome/Goals - GI Progressing Mobility- Improve/Maintain Start: 09/05/16 15:06 Freq: DAILY Status: Active Target: Activity Type Activity Date Activity User E-Sign Co-Sign Detail Recorded Client Recorded Date Recorded By Document 09/13/16 12:28 [id number] 09/13/16 12:28 [id number] 09/13/16 12:28 PMRU Outcome: Mobility Physical Therapy Evaluation and Yes Treatment Activity OOB with Assistance Yes WBAT Yes: r le Device Yes: rolling walker Assistance Yes: sammie Patient to be seen 5x/wk for 60-120 min/ Therex day for: Mobility Training Gait Training Outcome/Goals Maintain/ Achieve Baseline Mobility Status Improve Mobility Status Demonstrates Proper Use of Assistive Devices Free from Complications of Immobility Progression Toward Outcome/Goals Progressing Bed Mobility Yes: independent Transfers Yes: mod independent with rolling walker Gait x ft Yes: mod independent with rolling walker 150ft Up/Down Stairs Yes: 2 steps independent with rail With HEP Yes: independent recall thr precautions Safety- Improve/Maintain Start: 09/05/16 21:18 Freq: DAILY Status: Active Target: Activity Type Activity Date Activity User E-Sign Co-Sign Detail Recorded Client Recorded Date Recorded By Document 09/13/16 10:14 [id number] 09/13/16 10:16 [id number] 09/13/16 10:14 PMRU Outcome: Safety Outcome/Goals Remain Free of Injury or Harm Cooperates with Safety Measures for Least Restrictive Environment Prevent Falls/ Injury Equipment Needed Progression Toward Outcome/Goals Progressing Outcome/Goals Met Comment PA in place. Skin- Improve/Maintain Start: 09/05/16 21:18 Freq: DAILY Status: Active Target: Activity Type Activity Date Activity User E-Sign Co-Sign Detail Recorded Client Recorded Date Recorded By Document 09/13/16 10:14 [id number] 09/13/16 10:16 [id number] 09/13/16 10:14 PMRU Outcome: Skin Skin Risk Level Medium Skin Orders Dressing Change Air Mattress Turn/Position q2hr While in Bed Outcome/Goals Maintain/ Improve Skin Intergrity Free from Decubitus Surgical Incisions Healing Progression Toward Outcome/Goals Progressing Medicine Note: Length of Stay: 1 day Anticipated Discharge Destination: Home Tentative Discharge Date: 09/14/16 Discharged to: home
[2016-09-13 16:03] VITALS: BP 121/60
[2016-09-13] MEDS: Latanoprost 0.005%* 2.5 ml BTL BOTH EYES SCH (18:20)
[2016-09-13] MEDS: Fluticasone NASAL SPRAY 50MCG* 16 gm SPRAY BTL BOTH NARES SCH (21:22)
[2016-09-14 07:11] LABS: Hematocrit 36 % (42-52); Hemoglobin 11.5 g/dl (14.0-18.0); Mean Corpuscular HGB Conc 32 g/dl (31-36); Mean Corpuscular Hemoglobin 28 pg (27-31); Mean Corpuscular Volume 86 fL (80-94); Mean Platelet Volume 7 um3 (7.4-10.4); Red Blood Count 4.17 10^6/ul (4.0-5.4); Red Cell Distribution Width 17 % (10.5-15); White Blood Count 8.4 10^3/ul (3.5-10.8)
[2016-09-14 07:28] LABS: Albumin 3.4 g/dL (3.2-5.2); BUN/Creatinine Ratio 17.6 (8-20); Calcium 9.1 mg/dL (8.6-10.3); EGFR African American 75.1 (>60); EGFR Non-African American 58.4 (>60); Globulin 2.8 g/dL (2-4); Total Bilirubin 0.9 mg/dL (0.2-1.0); Total Protein 6.2 g/dL (6.4-8.9)
[2016-09-14] MEDS: Heparin VIAL(*) 5000 UNITS/ML VIAL (FIVE THOUSAND) SUBCUT SCH (08:11)
[2016-09-14] MEDS: Docusate CAP* 100 MG PO SCH (08:12)
[2016-09-14] MEDS: Tamsulosin CAP* 0.4 MG PO SCH (08:12)
[2016-09-14] MEDS: cloNIDine TAB* 0.1 MG PO SCH (08:12)
[2016-09-14] MEDS: amLODIPine TAB* 5 MG PO SCH (08:12)
[2016-09-14] MEDS: Aspirin EC Low Dose* 81 MG TAB.EC PO SCH (08:12)
--- NOTE | 2016-09-15 04:18 | DS ---
DISCHARGE SUMMARY: DATE OF ADMISSION: 09/05/16 DATE OF DISCHARGE: 09/14/16 DISCHARGE DIAGNOSES: 1. Pathologic fracture, right hip. 2. Hemiarthroplasty of same. 3. Renal cell cancer. 4. Status post left nephrectomy, remote. 5. Urinary retention. HISTORY OF ILLNESS AND HOSPITAL COURSE: For complete history of the events leading up to his rehab stay, please see the history and physical dictated by me on 09/05/16. While on the rehab unit, the patient did have followup from his oncologist, Dr. Maryellen Toledo. Dr. Toledo had ordered Dr. Cid from Radiation Oncology to see the patient. It is anticipated that 10 radiation treatments to his right thigh will begin 09/19/16. The patient's wound healed well while on the rehab unit. His yesica were removed without incidence. The patient's pain was well controlled while on the rehab unit. He was maintained on heparin for DVT prophylaxis. The patient was seen by both Physical and Occupational Therapy and made good gains with both disciplines. With Physical Therapy at the time of admission, the patient required supervision for transfers. He was able to ambulate with supervision. With Occupational Therapy, he required contact guard to min assist for toileting and toilet transfers. By the time of discharge, the patient was independent in transfers, independent ambulating 150 feet, independent in going up and down 5 stairs, independent in toileting and toilet transfers. He required minimal amount of assistance for putting his socks on for lower body dressing. The patient's was brought in for family training prior to discharge. The patient was discharged home, 09/14/16. Also of note, the patient arrived to the rehab unit with a Kern after he had failed a voiding trial at [facility]. His Kern had to be reinserted. He was started on Flomax at [facility]. A second voiding trial was done on the rehab unit. He was unable to void after 18 hours and his Kern catheter was replaced. He will continue on Flomax and will follow up with Dr. Mead. He was discharged home, . DISCHARGE DIET: Regular. DISCHARGE MEDICATIONS: 1. Aspirin 81 mg daily. 2. Xalatan eye drops one drop to both eyes every evening. 3. Flomax 0.4 mg daily. 4. Norvasc 5 mg daily. 5. Clonidine 0.1 mg orally twice a day. 6. Oxycodone 5 mg tablets every 4 hours as needed. SERVICES AFTER DISCHARGE: Through the visiting nurse service, he will have home nursing, home health aide, home physical therapy, home occupational therapy. FOLLOWUP: The patient will follow up with his primary care doctor, Dr. Cordova , as well as with his oncologist, Dr. Maryellen Toledo, and his orthopedic surgeon , Dr. Shay Dan, who will call his home for an appointment. CC: Dr. Jake Cordova; Dr. Maryellen Toledo* [id number] #: [id number] MTDD
== END 2016-09-14 11:40 | disposition home or self-care (01) | DRG 560 ==
LOC: PMRU 11:40 → UNDOADMIN 11:40 → UNDODISIN 09-14 11:40
PROVIDERS: ADMIT Physical Medicine & Rehabilitation; ATTEND Physical Medicine & Rehabilitation
PROC: F07Z5ZZ Bed Mobility Treatment (ICD-10-PCS; principal; 2016-09-05)
PROC: F07Z9ZZ Gait Training/Functional Ambulation Treatment (ICD-10-PCS; 2016-09-05)
PROC: F07Z8ZZ Transfer Training Treatment (ICD-10-PCS; 2016-09-05)
PROC: F08Z0ZZ Bathing/Showering Techniques Treatment (ICD-10-PCS; 2016-09-05)
PROC: F08Z1ZZ Dressing Techniques Treatment (ICD-10-PCS; 2016-09-05)
PROC: F08Z3ZZ Feeding/Eating Treatment (ICD-10-PCS; 2016-09-05)
DX: M84.451D Pathological fracture, right femur, subsequent encounter for fracture with routine healing (principal); C64.9 Malignant neoplasm of unspecified kidney, except renal pelvis; C79.51 Secondary malignant neoplasm of bone; Z47.1 Aftercare following joint replacement surgery; R33.9 Retention of urine, unspecified; Z96.641 Presence of right artificial hip joint; Z90.5 Acquired absence of kidney; Z88.0 Allergy status to penicillin
CPT/HCPCS: 36415; 77014; 77280; 80053; 85025; 99233; A9270-GY; J1644

== ENCOUNTER 2016-10-17 12:50 | Inpatient (IN) | payer MEDICARE, OTHER ==
[2016-10-17] MEDS ORDERED: NS 0.9% 1000 ML* 2,000 ML IV ONE (13:00)
--- NOTE | 2016-10-17 13:32 | RAD ---
Indication: Weakness with fever. Single frontal view of the chest performed at 1310 hours was reviewed. Comparison is made with previous exam dated December 05, 2015. No mediastinal shift is noted. Heart is of normal size and configuration. Central catheter is in place. Lung tejeda appear hyperinflated. No alveolar consolidation is noted. IMPRESSION: NO ACTIVE CARDIOPULMONARY DISEASE IS NOTED.
[2016-10-17 13:38] LABS: Hematocrit 38 % (42-52); Hemoglobin 12.7 g/dl (14.0-18.0); Mean Corpuscular HGB Conc 33 g/dl (31-36); Mean Corpuscular Hemoglobin 27 pg (27-31); Mean Corpuscular Volume 82 fL (80-94); Mean Platelet Volume 8 um3 (7.4-10.4); Red Blood Count 4.69 10^6/ul (4.0-5.4); Red Cell Distribution Width 17 % (10.5-15); White Blood Count 9.5 10^3/ul (3.5-10.8)
[2016-10-17 13:49] LABS: Urine Bacteria 1+ (Absent); Urine Bilirubin Negative (Negative); Urine Glucose Negative (Negative); Urine Nitrite Positive (Negative)
[2016-10-17 13:56] LABS: Albumin 3.5 g/dL (3.2-5.2); Calcium 8.9 mg/dL (8.6-10.3); EGFR African American 69.7 (>60); EGFR Non-African American 54.2 (>60); Globulin 2.8 g/dL (2-4); Magnesium 1.9 mg/dL (1.9-2.7); Potassium 3.7 mmol/L (3.5-5.0); Total Bilirubin 0.4 mg/dL (0.2-1.0); Total Protein 6.3 g/dL (6.4-8.9)
[2016-10-17 13:57] LABS: Troponin I 0.01 ng/mL (<0.04)
[2016-10-17 14:20] LABS: TSH (Thyroid Stimulating Horm) 3.07 mcIU/mL (0.34-5.60)
[2016-10-17] MEDS ORDERED: Ciprofloxacin 400MG IVPREMIX(* 400 MG/200 ML BAG IVPB ONE (14:21)
[2016-10-17] MEDS ORDERED: Clobetasol 0.05% OINT* 30 GM TUBE TOPICAL PRN (15:43)
[2016-10-17] MEDS: Metoprolol Tartrate TAB* 50 mg PO SCH (16:27)
[2016-10-17] MEDS: Tamsulosin CAP* 0.4 MG PO SCH (16:28)
[2016-10-17] MEDS: NS 0.9% 1000 ML* 1,000 ML IV SCH (16:28)
[2016-10-17] MEDS: Psyllium PAK PO SCH (17:41)
[2016-10-17] MEDS ORDERED: Cetirizine* 10 MG TAB PO PRN (18:00)
[2016-10-17] MEDS: Heparin VIAL(*) 5000 UNITS/ML VIAL (FIVE THOUSAND) SUBCUT SCH (21:44)
[2016-10-17] MEDS: Latanoprost 0.005%* 2.5 ml BTL BOTH EYES SCH (21:44)
[2016-10-17] MEDS: Fluticasone NASAL SPRAY 50MCG* 16 gm SPRAY BTL BOTH NARES SCH (21:44)
--- NOTE | 2016-10-17 22:05 | RAD ---
INDICATION: Urinary tract infection. COMPARISON: Comparison is made with a prior CT of the abdomen and pelvis from October 13, 2016. TECHNIQUE: Multiple real-time images of the right kidney were obtained. FINDINGS: The right kidney is normal in size shape and echogenicity. The kidney measured 11.0 x 5.6 x 4.5 cm. No significant focal abnormality or hydronephrosis was present. IMPRESSION: NEGATIVE EXAM.
--- NOTE | 2016-10-17 22:07 | RAD ---
INDICATION: Urinary tract infection. COMPARISON: Correlation is made with a prior renal ultrasound of the same date. TECHNIQUE: Multiple real-time images of the urinary bladder were obtained. FINDINGS: There is a Griffin catheter within the bladder. The bladder is otherwise completely empty. The ureteral jets are visible in this empty bladder. IMPRESSION: GRIFFIN CATHETER IN PLACE, URINARY BLADDER COMPLETELY EMPTY.
[2016-10-18] MEDS: Acetaminophen TAB* 325 MG PO PRN ×2 (00:14→20:23)
[2016-10-18] MEDS: NS 0.9% 1000 ML* 1,000 ML IV SCH ×2 (02:45→14:24)
[2016-10-18] MEDS: Ciprofloxacin 400MG IVPREMIX(* 400 MG/200 ML BAG IVPB SCH ×2 (02:49→15:13)
--- NOTE | 2016-10-18 03:09 | HP ---
HISTORY AND PHYSICAL: DATE OF ADMISSION: 10/17/16 TIME OF EVALUATION: 3:10 p.m. PRIMARY CARE PROVIDER: Dr. Cordova. ONCOLOGIST: Dr. Toledo. UROLOGIST: Dr. Perdomo. CHIEF COMPLAINT: "I'm weak." HISTORY OF PRESENT ILLNESS: Mr. 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 The patient was admitted to [facility] in [place] in August. He had complaints of right hip pain and was found to have metastatic lesions to his femur. On August 31, he underwent a resection of the bone lesion and a right long stem cemented hemiarthroplasty. He was admitted to [facility] from September 05 to September 14 and as per his , he was doing fairly well at home, able to ambulate with his walker, his pain was well controlled. He had very good appetite. A week ago, he started to have episodes of dry cough, but otherwise was feeling well. For the past 2 days, she noticed that he seemed to be weaker and last night, she felt that he was warm and measured a temperature of 99. So, she gave him some Tylenol. This morning, he was able to ambulate to their room, to the dining room. He had a good breakfast, but when she tried to walk with him back to his recliner, he became very weak and could not move further. So, she helped him lower himself to the floor. There was no loss of consciousness and no significant trauma. He was unable to get up off the bed and EMS was summoned. In the emergency room, his workup was suggestive of a urinary tract infection and the hospitalist service was called for further evaluation. PAST MEDICAL HISTORY: 1. Metastatic clear cell carcinoma of the kidney, status post left radical nephrectomy in October 2010 with metastatic disease (multiple hepatic lesions, significant retroperitoneal lymphadenopathy, multiple lung lesions). The patient is off chemotherapy at this point, but he was treated with everolimus, Avastin, pazopanib, nivolumab. As per Dr. Toledo's notes, he had reactions to medications and the plan at this point is just to continue to monitor him. 2. Status post pathologic right hip fracture, status post surgical repair. As per Dr. Toledo's notes, margins were negative and it was felt he would not benefit from adjuvant radiation therapy. 3. CKD stage 3. 4. Coronary artery disease. 5. GERD. 6. Hypertension. 7. BPH with a chronic Kern. This catheter was last changed 2 weeks ago by VNS. MEDICATION LIST: 1. Amlodipine 5 mg p.o. daily. 2. Aspirin 81 mg p.o. daily. 3. Clobetasol 0.05% ointment topical b.i.d. as needed for itching. 4. Clonidine 0.1 mg p.o. daily. 5. Cod liver oil 1250 units p.o. daily. 6. Fluticasone nasal spray 50 mcg 2 sprays to both nares at bedtime. 7. Rectal hydrocortisone 2.5% per rectum daily as needed for itching. 8. Xalatan 0.005% one drop to both eyes at bedtime. 9. Loratadine 10 mg p.o. q.a.m. as needed for allergy symptoms. 10. Metoprolol tartrate 25 mg p.o. b.i.d. with meals. 11. Metamucil p.o. q.p.m. 12. Tamsulosin 0.4 mg p.o. q.p.m. ALLERGIES: With PENICILLIN, the patient was dizzy and disoriented. SOCIAL HISTORY: There is no history of tobacco abuse. He has a glass of wine a day. Surrogate decision maker is his , Carmen. Phone number is [phone]. REVIEW OF SYSTEMS: A 14-point review of systems was performed and all the pertinent negative and positive findings are in the HPI. PHYSICAL EXAMINATION GENERAL: The patient is an elderly male, lying in the stretcher, in no acute distress. VITAL SIGNS: Temperature 99.3, heart rate is 110, respiratory rate is 18, oxygen saturation 96% on room air, blood pressure is 140/55. HEENT: Pupils are equal. Moist mucous membranes. CHEST: Breath sounds bilaterally with no added sounds. CVS: Normal S1, S2. Regular rate and rhythm. ABDOMEN: Obese, soft, nontender, nondistended. Bowel sounds are present. EXTREMITIES: No edema. NEUROLOGIC: The patient is a little bit lethargic, but arousable to voice, but during our interview, he deferred most of the questions to his , although he does not appear to be confused. LABORATORY AND IMAGING DATA: The patient had a CBC that showed a WBC of 9.5, hemoglobin of 12.7, hematocrit of 38, platelets of 200 with 73% neutrophils. Chemistry showed a sodium of 131, potassium 3.7, chloride of 100, bicarb 25, BUN of 14, creatinine of 1.27, glucose of 123, lactic acid of 1.2, calcium of 8.9. LFTs are normal. Alk phos was slightly elevated at 122. Urinalysis showed 2+ protein, 3+ blood, positive nitrite, positive LE, 3+ wbc's , 3+ rbc's. CT of the chest, abdomen, and pelvis with contrast was done on October 13 as part of his outpatient surveillance. The study showed emphysema, presumed serosal hepatic lesion without significant interval change, left adrenal metastasis without significant interval change, status post left nephrectomy. The dominant implant in the left renal fossa appears slightly larger. There are additional implants in the anterior left lower pelvis and right iliac fossa , marked prostatic enlargement, and interval right hip arthropathy. Chest x-ray done today showed no active cardiopulmonary disease. ASSESSMENT AND PLAN: Mr. 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 1. Urinary tract infection (Kern catheter related present on admission). The patient did not have a fever or leukocytosis, but he is tachycardic. He will be admitted as observation to the telemetry floor for urinary tract infection. His tells me that his Kern catheter was changed 2 weeks ago. He will be started on ciprofloxacin and we will change his Kern before he is discharged. He had a recent CT done as outpatient. Today, I am going to check a renal bladder ultrasound to look for signs of hydronephrosis. The patient will receive IV fluids and symptomatic treatment. 2. Chronic kidney disease stage 3. His renal function is at baseline at this time. 3. Metastatic clear cell carcinoma of the kidney. His CT has not shown significant change in the disease and I discussed the case with his oncologist, Dr. Toledo. He actually had an appointment to see her today and they were going to discuss if they were going to pursue any further chemotherapy as he had reactions to many medications in the past and she felt she had only one more option to offer him at this point. 4. Coronary artery disease, appears to be stable. The patient will be continued on aspirin and metoprolol. 5. DVT prophylaxis: The patient has a score of 5 on the DVT Prophylaxis Risk Assessment Guide and he will be started on subcutaneous heparin and SCDs. 6. Code status was discussed with his and she states the patient wishes to be a full code. TIME SPENT: Approximately 60 minutes were spent with the patient and interview, medical records review, physical examination to complete this admission, more than half this time spent [id number] with the patient and coordination of care. CC: Dr. Cordova; Dr. Toledo; Dr. Perdomo * [id number]/CPS #: [id number] MTDD
[2016-10-18] MEDS: Heparin VIAL(*) 5000 UNITS/ML VIAL (FIVE THOUSAND) SUBCUT SCH ×3 (05:36→22:16)
[2016-10-18 06:10] LABS: Hematocrit 35 % (42-52); Hemoglobin 11.5 g/dl (14.0-18.0); Mean Corpuscular HGB Conc 33 g/dl (31-36); Mean Corpuscular Hemoglobin 27 pg (27-31); Mean Corpuscular Volume 82 fL (80-94); Mean Platelet Volume 8 um3 (7.4-10.4); Red Blood Count 4.31 10^6/ul (4.0-5.4); Red Cell Distribution Width 17 % (10.5-15); White Blood Count 6.6 10^3/ul (3.5-10.8)
[2016-10-18 06:23] LABS: BUN/Creatinine Ratio 9.8 (8-20); Calcium 8.2 mg/dL (8.6-10.3); EGFR Non-African American 56.7 (>60); Potassium 3.4 mmol/L (3.5-5.0)
[2016-10-18] MEDS: amLODIPine TAB* 5 MG PO SCH (10:09)
[2016-10-18] MEDS: Aspirin Low Dose CHEW TAB* 81 MG PO SCH (10:09)
[2016-10-18] MEDS: cloNIDine TAB* 0.1 MG PO SCH (10:09)
[2016-10-18] MEDS: Metoprolol Tartrate TAB* 50 mg PO SCH ×2 (10:10→17:49)
[2016-10-18] MEDS ORDERED: Potassium Chlor TAB* 20 MEQ TAB.ER PO ONE (13:16)
--- NOTE | 2016-10-18 14:18 | PN ---
Subjective Date of Service: 10/18/16 Interval History: Pt is feeling only so-so. He feels very sleepy. He feels very hot. He denies any pain. He has not been out of bed yet today. Objective Active Medications: Acetaminophen (Tylenol Tab*) 650 mg PO Q6H PRN PRN Reason: pain/fever Last Admin: 10/18/16 00:14 Dose: 650 mg Amlodipine Besylate (Norvasc Tab*) 5 mg PO DAILY [facility] Last Admin: 10/18/16 10:09 Dose: 5 mg Aspirin (Aspirin Low Dose Tab*) 81 mg PO DAILY [facility] Last Admin: 10/18/16 10:09 Dose: 81 mg Cetirizine HCl (Zyrtec*) 10 mg PO QPM PRN PRN Reason: ALLERGY SYMPTOMS Clobetasol Propionate (Clobetasol 0.05% Oint*) 1 applic TOPICAL BID PRN PRN Reason: ITCHING Clonidine HCl (Catapres Tab*) 0.1 mg PO DAILY [facility] Last Admin: 10/18/16 10:09 Dose: 0.1 mg Fluticasone Propionate (Flonase Nasal [place] 50mcg*) 2 spray BOTH NARES BEDTIME [facility] Last Admin: 10/17/16 21:44 Dose: 2 spray Heparin Sodium (Porcine) (Heparin Vial(*)) 5,000 units SUBCUT Q8HR [facility] Last Admin: 10/18/16 05:36 Dose: 5,000 units Ciprofloxacin/Dextrose (Cipro 400 Mg Ivpremix(*)) 400 mg in 200 mls @ 200 mls/ hr IVPB Q12H [facility] Last Admin: 10/18/16 02:49 Dose: 200 mls/hr Sodium Chloride (Ns 0.9% 1000 Ml*) 1,000 mls @ 100 mls/hr IV PER RATE [facility] Last Admin: 10/18/16 02:45 Dose: 100 mls/hr Latanoprost (Xalatan 0.005%*) 1 drop BOTH EYES BEDTIME [facility] Last Admin: 10/17/16 21:44 Dose: 1 drop Metoprolol Tartrate (Lopressor Tab*) 25 mg PO BID WITH MEALS [facility] Last Admin: 10/18/16 10:10 Dose: 25 mg Psyllium Hydrophilic Mucilloid (Metamucil Joe*) 1 pkt PO QPM [facility] Last Admin: 10/17/16 17:41 Dose: 1 pkt Tamsulosin HCl (Flomax Cap*) 0.4 mg PO QPM [facility] Last Admin: 10/17/16 16:28 Dose: 0.4 mg Vital Signs 10/17/16 10/17/16 10/17/16 15:00 15:30 15:55 Temperature 99.3 F 99.4 F Pulse Rate 110 105 Respiratory 18 18 Rate Blood Pressure 141/55 140/51 119/52 (mmHg) O2 Sat by Pulse 95 Oximetry 10/17/16 10/17/16 10/17/16 20:00 20:02 23:42 Temperature 99.4 F 100.5 F Pulse Rate 93 98 Respiratory 18 20 20 Rate Blood Pressure 123/48 138/51 (mmHg) O2 Sat by Pulse 91 93 Oximetry 10/18/16 10/18/16 10/18/16 03:00 03:41 04:49 Temperature 98.5 F 98.7 F Pulse Rate 87 91 Respiratory 16 Rate Blood Pressure 116/63 (mmHg) O2 Sat by Pulse 94 Oximetry 10/18/16 10/18/16 10/18/16 07:20 07:31 07:50 Temperature 98.2 F Pulse Rate 81 86 Respiratory 16 18 Rate Blood Pressure 144/47 (mmHg) O2 Sat by Pulse 97 Oximetry 10/18/16 11:22 Temperature 97.9 F Pulse Rate 107 Respiratory 17 Rate Blood Pressure 166/53 (mmHg) O2 Sat by Pulse 92 Oximetry Oxygen Devices in Use Now: None Appearance: Elderly male sitting up in bed, sleepy appearing, NAD Eyes: No Scleral Icterus Ears/Nose/Mouth/Throat: Mucous Membranes Moist Respiratory: Symmetrical Chest Expansion and Respiratory Effort, Clear to Auscultation Cardiovascular: NL Sounds; No Murmurs; No JVD, No Edema, - - mildly tachycardic but regular Abdominal: NL Sounds; No Tenderness; No Distention Extremities: No Clubbing, Cyanosis Skin: No Rash or Ulcers, No Nodules or Sclerosis Neurological: - - sleepy but interactive Result Diagrams: 10/18/16 05:35 10/18/16 05:35 Assess/Plan/Problems-Billing Mr Morales is an 85 yo M who has a h/o 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 - Patient Problems (1) UTI (urinary tract infection) Current Visit: Yes Status: Acute Comment: Urine culture is pending. He is still very wiped out. He will be monitored overnight and await culture data. Additionally he is still very weak and in need of help with mobilization. His indicates he needs to be able to walk with a walker before she will take him home. (2) Stage III chronic kidney disease Current Visit: Yes Status: Acute Code(s): N18.3 - CHRONIC KIDNEY DISEASE, STAGE 3 (MODERATE) SNOMED Code(s): 228767992 Comment: Creatinine is stable and at baseline. (3) HTN (hypertension) Current Visit: Yes Status: Acute Code(s): I10 - ESSENTIAL (PRIMARY) HYPERTENSION SNOMED Code(s): 10826375 Comment: BP at times are moderately elevated. For now continue current medication regimen and continue to monitor. (4) Renal cell cancer Current Visit: Yes Status: Acute Code(s): C64.9 - MALIGNANT NEOPLASM OF UNSP KIDNEY, EXCEPT RENAL PELVIS SNOMED Code(s): 952027714 Comment: Pt is currently off treatment. He will follow up with Dr. Toledo as an outpatient. (5) CAD (coronary artery disease) Current Visit: Yes Status: Acute Code(s): I25.10 - ATHSCL HEART DISEASE OF [place] CORONARY ARTERY W/O ANG PCTRS SNOMED Code(s): 64372625 Comment: No complaints. Continue ASA and metoprolol. (6) DVT prophylaxis Current Visit: Yes Status: Acute Code(s): PJK2136 - SNOMED Code(s): 501774169 Comment: SQ heparin (7) Full code status Current Visit: Yes Status: Acute Code(s): Z78.9 - OTHER SPECIFIED HEALTH STATUS SNOMED Code(s): 146706221
[2016-10-18] MEDS: Psyllium PAK PO SCH (17:49)
[2016-10-18] MEDS: Tamsulosin CAP* 0.4 MG PO SCH (17:49)
[2016-10-18] MEDS: ceFAZolin 1 GM in Dextrose (*) 1 GM/50 ML BAG IVPB SCH (20:16)
[2016-10-18] MEDS: Latanoprost 0.005%* 2.5 ml BTL BOTH EYES SCH (22:14)
[2016-10-18] MEDS: Fluticasone NASAL SPRAY 50MCG* 16 gm SPRAY BTL BOTH NARES SCH (22:15)
[2016-10-19] MEDS: NS 0.9% 1000 ML* 1,000 ML IV SCH ×2 (02:10→14:13)
[2016-10-19] MEDS: ceFAZolin 1 GM in Dextrose (*) 1 GM/50 ML BAG IVPB SCH (03:13)
[2016-10-19] MEDS: Heparin VIAL(*) 5000 UNITS/ML VIAL (FIVE THOUSAND) SUBCUT SCH ×3 (05:16→21:08)
[2016-10-19] MEDS: amLODIPine TAB* 5 MG PO SCH (08:27)
[2016-10-19] MEDS: cloNIDine TAB* 0.1 MG PO SCH (08:27)
[2016-10-19] MEDS: Aspirin Low Dose CHEW TAB* 81 MG PO SCH (08:28)
[2016-10-19] MEDS: Metoprolol Tartrate TAB* 50 mg PO SCH ×2 (08:28→17:47)
[2016-10-19] MEDS: guaiFENesin LIQ* 100 MG/5 ML UDC PO PRN ×2 (08:28→17:47)
[2016-10-19] MEDS ORDERED: Vancomycin(*) 1,000 MG in NS 0.9% 250 ML* 250 ML IVPB ONE (10:00)
[2016-10-19] MEDS ORDERED: Vancomycin per Pharmacy* NOTE FOLLOW UP PRN (12:20)
--- NOTE | 2016-10-19 15:46 | ED ---
John Rainey Adam, scribed for Tonny Mendoza MD on 10/17/16 at 1309 . Complex/Multi-Sys Presentation - HPI Summary HPI Summary: Pt is an 85 year old male presenting with weakness. Pt appears confused and he states that he collapsed at home because he was feeling weak. He denies LOC. He denies any nausea, vomiting, or diarrhea. - History Of Current Complaint Chief Complaint: EDGeneral Time Seen by Provider: 10/17/16 13:02 Hx Obtained From: Patient Onset/Duration: Gradual Onset, Lasting Hours, Still Present Severity Currently: Moderate Severity Initially: Moderate Associated Signs And Symptoms: Positive: Weakness. Negative: Nausea, Vomiting, Diarrhea - Allergies/Home Medications Allergies/Adverse Reactions: Allergies Allergy/AdvReac Type Severity Reaction Status Date / Time Penicillins Allergy DIZZY, Verified 10/13/16 10:13 DISORIENTED HAYFEVER-SEASONAL Allergy POST NASAL Uncoded 10/13/16 10:13 DRIP Home Medications: Home Medications Aspirin Low Dose CHEW TAB* [Aspirin Low Dose TAB*] 81 mg PO DAILY 10/17/16 [ History Confirmed 10/17/16] Clobetasol 0.05% OINT* 1 applic TOPICAL BID PRN 10/17/16 [History Confirmed 04/25] Cod Liver Oil 1,250 units PO DAILY 10/17/16 [History Confirmed 10/17/16] Fluticasone NASAL SPRAY 50MCG* [Flonase NASAL SPRAY 50MCG*] 2 spray BOTH NARES BEDTIME 10/17/16 [History Confirmed 10/17/16] Hydrocortisone (Rectal) [Proctozone-Hc] 2.5 % NC DAILY PRN 10/17/16 [History Confirmed 10/17/16] Psyllium [Metamucil Original Textur] 48.57 % PO QPM 10/17/16 [History Confirmed 10/17/16] Tamsulosin CAP* [Flomax CAP*] 0.4 mg PO QPM 10/17/16 [History Confirmed 10/17/16 ] amLODIPine TAB* [Norvasc 5 mg TAB*] 5 mg PO DAILY 10/17/16 [History Confirmed ] cloNIDine TAB* [Catapres 0.1 MG TAB*] 0.1 mg PO DAILY 10/17/16 [History Confirmed 10/17/16] PMH/Surg Hx/FS Hx/Imm Hx Endocrine/Hematology History: Reports: Hx Systemic Lupus Erythematosus Denies: Hx Anticoagulant Therapy, Hx Diabetes, Hx Thyroid Disease Cardiovascular History: Reports: Hx Coronary Artery Disease, Hx Hypertension Denies: Hx Congestive Heart Failure, Hx Pacemaker/ICD, Other Cardiovascular Problems/Disorders Respiratory History: Reports: Hx Pneumonia, Hx Seasonal Allergies, Other Respiratory Problems/Disorders - hx pneumonia in december Denies: Hx Chronic Obstructive Pulmonary Disease (COPD) GI History: Denies: Other GI Disorders History: Reports: Hx Benign Prostatic Hyperplasia, Hx Kidney Stones - 15 YEARS AGO NONE SINCE, Hx Renal Disease, Other Problems/Disorders - chronic kidney disease, 10/18 l kidney removal, UTI Denies: Hx Dialysis Musculoskeletal History: Reports: Hx Bursitis - BILATERAL SHOULDER YEARS AGO, NO PROBLEM NOW Denies: Hx Arthritis, Hx Rheumatoid Arthritis, Hx Back Problems, Hx Osteoporosis Sensory History: Reports: Hx Contacts or Glasses Denies: Hx Hearing Aid Opthamlomology History: Reports: Hx Contacts or Glasses Neurological History: Reports: Hx Headaches - not too bad, takes tylenol for them Denies: Hx Dementia, Hx Seizures Psychiatric History: Denies: Hx Panic Disorder - Cancer History Cancer Type, Location and Year: kidney dx 10/2010 - Lt NEPHRECTOMY by dr. vora at [facility] Chemotherapy: Yes - current Hx Radiation Therapy: No Hx Palliative Cancer Treatment: No - Surgical History Surgery Procedure, Year, and Place: left nephrectomy 10/27/10. inguinal hernia repair x 2 ;. powerport placement - [facility] [place] by dr. alas 05/25 Hx Anesthesia Reactions: No - Immunization History Date of Tetanus Vaccine: Unk Date of Influenza Vaccine: Fall 2011 Infectious Disease History: Reports: Hx Tuberculosis - 60 years ago Denies: Traveled Outside the [place] in Last 30 Days - Family History Known Family History: Positive: Hypertension - Social History Occupation: Retired Lives: With Family - Alcohol Use: Daily Alcohol Amount: 1 glass wine Hx Substance Use: No Substance Use Type: Reports: None Hx Tobacco Use: Yes Smoking Status (MU): Former Smoker Type: Cigarettes Amount Used/How Often: 1 ppd Length of Time of Smoking/Using Tobacco: 30 years Have You Smoked in the Last Year: No Review of Systems Negative: Fever Negative: Vomiting, Diarrhea, Nausea Positive: Weakness All Other Systems Reviewed And Are Negative: Yes Physical Exam Triage Information Reviewed: Yes Vital Signs On Initial Exam: Initial Vitals Temp Pulse Resp BP 99.3 F 111 23 126/51 10/17/16 12:56 10/17/16 12:56 10/17/16 12:56 10/17/16 12:56 Vital Signs Reviewed: Yes Appearance: Positive: Well-Appearing, No Pain Distress Skin: Positive: Warm, Skin Color Reflects Adequate Perfusion, Dry Head/Face: Positive: Normal Head/Face Inspection Eyes: Positive: Normal ENT: Positive: Other - Dry mucous membranes Neck: Positive: Supple, Nontender Respiratory/Lung Sounds: Positive: Clear to Auscultation, Breath Sounds Present Cardiovascular: Positive: RRR Abdomen Description: Positive: Nontender, Soft Bowel Sounds: Positive: Present Musculoskeletal: Positive: Normal Neurological: Positive: Normal Psychiatric: Positive: Affect/Mood Appropriate Diagnostics - Vital Signs Vital Signs Temp Pulse Resp BP Pulse Ox 10/17/16 13:02 99.3 F 109 22 126/51 95 10/17/16 13:01 108 14 92 10/17/16 13:00 126/51 10/17/16 12:56 99.3 F 111 23 126/51 - Laboratory Lab Results: Lab Results 10/17/16 10/17/16 10/17/16 Range/Units 13:12 13:23 13:23 WBC 9.5 (3.5-10.8) 10^3/ul RBC 4.69 (4.0-5.4) 10^6/ul Hgb 12.7 L (14.0-18.0) g/dl Hct 38 L (42-52) % MCV 82 (80-94) fL MCH 27 (27-31) pg MCHC 33 (31-36) g/dl RDW 17 H (10.5-15) % Plt Count 200 (150-450) 10^3/ul MPV 8 (7.4-10.4) um3 Neut % (Auto) 73.3 (38-83) % Lymph % (Auto) 16.0 L (25-47) % [place] % (Auto) 7.8 (1-9) % Eos % (Auto) 1.9 (0-6) % Baso % (Auto) 1.0 (0-2) % Absolute Neuts (auto) 7.0 (1.5-7.7) 10^3/ul Absolute Lymphs (auto) 1.5 (1.0-4.8) 10^3/ul Absolute Monos (auto) 0.7 (0-0.8) 10^3/ul Absolute Eos (auto) 0.2 (0-0.6) 10^3/ul Absolute Basos (auto) 0.1 (0-0.2) 10^3/ul Absolute Nucleated RBC 0.01 10^3/ul Nucleated RBC % 0.1 Sodium 131 L (133-145) mmol/L Potassium 3.7 (3.5-5.0) mmol/L Chloride 100 L (101-111) mmol/L Carbon Dioxide 25 (22-32) mmol/L Anion Gap 6 (2-11) mmol/L BUN 14 (6-24) mg/dL Creatinine 1.27 H (0.67-1.17) mg/dL Est GFR ( Amer) 69.7 (>60) Est GFR (Non-Af Amer) 54.2 (>60) BUN/Creatinine Ratio 11.0 (8-20) Glucose 123 H (70-100) mg/dL Lactic Acid (0.5-2.0) mmol/L Calcium 8.9 (8.6-10.3) mg/dL Magnesium 1.9 (1.9-2.7) mg/dL Total Bilirubin 0.40 (0.2-1.0) mg/dL AST 12 L (13-39) U/L ALT 7 (7-52) U/L Alkaline Phosphatase 122 H (34-104) U/L Troponin I 0.01 (<0.04) ng/mL Total Protein 6.3 L (6.4-8.9) g/dL Albumin 3.5 (3.2-5.2) g/dL Globulin 2.8 (2-4) g/dL Albumin/Globulin Ratio 1.3 (1-3) TSH 3.07 (0.34-5.60) mcIU/mL Urine Color Yellow Urine Appearance Cloudy Urine pH 6.0 (5-9) Ur Specific [place] 1.015 (1.010-1.030) Urine Protein 2+(100 mg/dl) H (Negative) Urine Ketones Negative (Negative) Urine Blood 3+ H (Negative) Urine Nitrate Positive H (Negative) Urine Bilirubin Negative (Negative) Urine Urobilinogen Negative (Negative) Ur Leukocyte Esterase 3+ H (Negative) Urine WBC (Auto) 3+(>20/hpf) H (Absent) Urine RBC (Auto) 3+(>10/hpf) H (Absent) Urine Bacteria 1+ H (Absent) Urine Glucose Negative (Negative) 10/17/16 10/18/16 10/18/16 Range/Units 13:23 05:35 05:35 WBC 6.6 (3.5-10.8) 10^3/ul RBC 4.31 (4.0-5.4) 10^6/ul Hgb 11.5 L (14.0-18.0) g/dl Hct 35 L (42-52) % MCV 82 (80-94) fL MCH 27 (27-31) pg MCHC 33 (31-36) g/dl RDW 17 H (10.5-15) % Plt Count 173 (150-450) 10^3/ul MPV 8 (7.4-10.4) um3 Neut % (Auto) 59.5 (38-83) % Lymph % (Auto) 25.6 (25-47) % [place] % (Auto) 11.4 H (1-9) % Eos % (Auto) 2.9 (0-6) % Baso % (Auto) 0.6 (0-2) % Absolute Neuts (auto) 3.9 (1.5-7.7) 10^3/ul Absolute Lymphs (auto) 1.7 (1.0-4.8) 10^3/ul Absolute Monos (auto) 0.7 (0-0.8) 10^3/ul Absolute Eos (auto) 0.2 (0-0.6) 10^3/ul Absolute Basos (auto) 0 (0-0.2) 10^3/ul Absolute Nucleated RBC 0.01 10^3/ul Nucleated RBC % 0.2 Sodium 132 L (133-145) mmol/L Potassium 3.4 L (3.5-5.0) mmol/L Chloride 102 (101-111) mmol/L Carbon Dioxide 24 (22-32) mmol/L Anion Gap 6 (2-11) mmol/L BUN 12 (6-24) mg/dL Creatinine 1.22 H (0.67-1.17) mg/dL Est GFR ( Amer) 73.0 (>60) Est GFR (Non-Af Amer) 56.7 (>60) BUN/Creatinine Ratio 9.8 (8-20) Glucose 108 H (70-100) mg/dL Lactic Acid 1.2 (0.5-2.0) mmol/L Calcium 8.2 L (8.6-10.3) mg/dL Magnesium (1.9-2.7) mg/dL Total Bilirubin (0.2-1.0) mg/dL AST (13-39) U/L ALT (7-52) U/L Alkaline Phosphatase (34-104) U/L Troponin I (<0.04) ng/mL Total Protein (6.4-8.9) g/dL Albumin (3.2-5.2) g/dL Globulin (2-4) g/dL Albumin/Globulin Ratio (1-3) TSH (0.34-5.60) mcIU/mL Urine Color Urine Appearance Urine pH (5-9) Ur Specific [place] (1.010-1.030) Urine Protein (Negative) Urine Ketones (Negative) Urine Blood (Negative) Urine Nitrate (Negative) Urine Bilirubin (Negative) Urine Urobilinogen (Negative) Ur Leukocyte Esterase (Negative) Urine WBC (Auto) (Absent) Urine RBC (Auto) (Absent) Urine Bacteria (Absent) Urine Glucose (Negative) Result Diagrams: 10/18/16 05:35 10/18/16 05:35 Lab Statement: Any lab studies that have been ordered have been reviewed, and results considered in the medical decision making process. - Radiology CXR Radiology Interpretation Completed By: Radiologist - IMPRESSION: NO ACTIVE CARDIOPULMONARY DISEASE IS NOTED. - Additional Comments Diagnostic Additional Comments: Troponin I - 0.01 Complex Multi-Symp Course/Dx Course Of Treatment: Mr. Morales presented after a syncopal episode. He was found to be septic likely from his urine and chronic indwelliing catheter. He was treated with IV fluids and antibiotics and the hospitalists were contacted for admission. - Diagnoses Provider Diagnoses: Sepsis, UTI (urinary tract infection) - Physician Notifications Discussed Care Of Patient With: Dr. Garcia - Critical Care Time Critical Care Time: 30-74 min Discharge - Discharge Plan Condition: Stable Disposition: ADMITTED TO [facility] documentation as recorded by the scribe, John,Lance accurately reflects the service I personally performed and the decisions made by me, Tonny Mendoza MD.
--- NOTE | 2016-10-19 16:54 | PN ---
Subjective Date of Service: 10/19/16 Interval History: Pt is feeling ok. He states he was incontinent of stool once he got into the chair this afternoon. He denies any pain or SOB. Objective Active Medications: Acetaminophen (Tylenol Tab*) 650 mg PO Q6H PRN PRN Reason: pain/fever Last Admin: 10/18/16 20:23 Dose: 650 mg Amlodipine Besylate (Norvasc Tab*) 5 mg PO DAILY [facility] Last Admin: 10/19/16 08:27 Dose: 5 mg Aspirin (Aspirin Low Dose Tab*) 81 mg PO DAILY [facility] Last Admin: 10/19/16 08:28 Dose: 81 mg Cetirizine HCl (Zyrtec*) 10 mg PO QPM PRN PRN Reason: ALLERGY SYMPTOMS Clobetasol Propionate (Clobetasol 0.05% Oint*) 1 applic TOPICAL BID PRN PRN Reason: ITCHING Clonidine HCl (Catapres Tab*) 0.1 mg PO DAILY [facility] Last Admin: 10/19/16 08:27 Dose: 0.1 mg Fluticasone Propionate (Flonase Nasal [place] 50mcg*) 2 spray BOTH NARES BEDTIME [facility] Last Admin: 10/18/16 22:15 Dose: 2 spray Guaifenesin (Robitussin*) 5 ml PO Q4H PRN PRN Reason: COUGH Last Admin: 10/19/16 08:28 Dose: 5 ml Heparin Sodium (Porcine) (Heparin Vial(*)) 5,000 units SUBCUT Q8HR [facility] Last Admin: 10/19/16 14:13 Dose: 5,000 units Sodium Chloride (Ns 0.9% 1000 Ml*) 1,000 mls @ 100 mls/hr IV PER RATE [facility] Last Admin: 10/19/16 14:13 Dose: 100 mls/hr Vancomycin HCl 750 mg/ Sodium (Chloride) 250 mls @ 166.667 mls/hr IVPB Q8H [facility] Latanoprost (Xalatan 0.005%*) 1 drop BOTH EYES BEDTIME [facility] Last Admin: 10/18/16 22:14 Dose: 1 drop Metoprolol Tartrate (Lopressor Tab*) 25 mg PO BID WITH MEALS [facility] Last Admin: 10/19/16 08:28 Dose: 25 mg Pharmacy Consult (Vancomycin Per Pharmacy*) 1 note FOLLOW UP . PRN PRN Reason: PER PROTOCOL Pharmacy Profile Note (Vancomycin Trough Check) 1 note FOLLOW UP 1030 ONE Stop: 10/20/16 10:31 Psyllium Hydrophilic Mucilloid (Metamucil Joe*) 1 pkt PO QPM [facility] Last Admin: 10/18/16 17:49 Dose: 1 pkt Tamsulosin HCl (Flomax Cap*) 0.4 mg PO QPM [facility] Last Admin: 10/18/16 17:49 Dose: 0.4 mg Vital Signs 10/19/16 10/19/16 11:06 15:42 Temperature 98.0 F 97.9 F Pulse Rate 73 86 Respiratory 16 18 Rate Blood Pressure 99/44 107/52 (mmHg) O2 Sat by Pulse 95 95 Oximetry Oxygen Devices in Use Now: None Appearance: Elderly male sitting in a recliner chair sleeping, awakens to voice , NAD Eyes: No Scleral Icterus Ears/Nose/Mouth/Throat: Mucous Membranes Moist Respiratory: Symmetrical Chest Expansion and Respiratory Effort, Clear to Auscultation Cardiovascular: NL Sounds; No Murmurs; No JVD, RRR, No Edema Abdominal: NL Sounds; No Tenderness; No Distention Extremities: No Clubbing, Cyanosis Skin: No Rash or Ulcers, No Nodules or Sclerosis Neurological: - - slightly confuse Result Diagrams: 10/18/16 05:35 10/18/16 05:35 Additional Lab and Data: Lab Results 10/17/16 10/17/16 10/17/16 Range/Units 13:12 13:23 13:23 WBC 9.5 (3.5-10.8) 10^3/ul RBC 4.69 (4.0-5.4) 10^6/ul Hgb 12.7 L (14.0-18.0) g/dl Hct 38 L (42-52) % MCV 82 (80-94) fL MCH 27 (27-31) pg MCHC 33 (31-36) g/dl RDW 17 H (10.5-15) % Plt Count 200 (150-450) 10^3/ul MPV 8 (7.4-10.4) um3 Neut % (Auto) 73.3 (38-83) % Lymph % (Auto) 16.0 L (25-47) % [place] % (Auto) 7.8 (1-9) % Eos % (Auto) 1.9 (0-6) % Baso % (Auto) 1.0 (0-2) % Absolute Neuts (auto) 7.0 (1.5-7.7) 10^3/ul Absolute Lymphs (auto) 1.5 (1.0-4.8) 10^3/ul Absolute Monos (auto) 0.7 (0-0.8) 10^3/ul Absolute Eos (auto) 0.2 (0-0.6) 10^3/ul Absolute Basos (auto) 0.1 (0-0.2) 10^3/ul Absolute Nucleated RBC 0.01 10^3/ul Nucleated RBC % 0.1 Sodium 131 L (133-145) mmol/L Potassium 3.7 (3.5-5.0) mmol/L Chloride 100 L (101-111) mmol/L Carbon Dioxide 25 (22-32) mmol/L Anion Gap 6 (2-11) mmol/L BUN 14 (6-24) mg/dL Creatinine 1.27 H (0.67-1.17) mg/dL Est GFR ( Amer) 69.7 (>60) Est GFR (Non-Af Amer) 54.2 (>60) BUN/Creatinine Ratio 11.0 (8-20) Glucose 123 H (70-100) mg/dL Lactic Acid (0.5-2.0) mmol/L Calcium 8.9 (8.6-10.3) mg/dL Magnesium 1.9 (1.9-2.7) mg/dL Total Bilirubin 0.40 (0.2-1.0) mg/dL AST 12 L (13-39) U/L ALT 7 (7-52) U/L Alkaline Phosphatase 122 H (34-104) U/L Troponin I 0.01 (<0.04) ng/mL Total Protein 6.3 L (6.4-8.9) g/dL Albumin 3.5 (3.2-5.2) g/dL Globulin 2.8 (2-4) g/dL Albumin/Globulin Ratio 1.3 (1-3) TSH 3.07 (0.34-5.60) mcIU/mL Urine Color Yellow Urine Appearance Cloudy Urine pH 6.0 (5-9) Ur Specific [place] 1.015 (1.010-1.030) Urine Protein 2+(100 mg/dl) H (Negative) Urine Ketones Negative (Negative) Urine Blood 3+ H (Negative) Urine Nitrate Positive H (Negative) Urine Bilirubin Negative (Negative) Urine Urobilinogen Negative (Negative) Ur Leukocyte Esterase 3+ H (Negative) Urine WBC (Auto) 3+(>20/hpf) H (Absent) Urine RBC (Auto) 3+(>10/hpf) H (Absent) Urine Bacteria 1+ H (Absent) Urine Glucose Negative (Negative) 10/17/16 10/18/16 10/18/16 Range/Units 13:23 05:35 05:35 WBC 6.6 (3.5-10.8) 10^3/ul RBC 4.31 (4.0-5.4) 10^6/ul Hgb 11.5 L (14.0-18.0) g/dl Hct 35 L (42-52) % MCV 82 (80-94) fL MCH 27 (27-31) pg MCHC 33 (31-36) g/dl RDW 17 H (10.5-15) % Plt Count 173 (150-450) 10^3/ul MPV 8 (7.4-10.4) um3 Neut % (Auto) 59.5 (38-83) % Lymph % (Auto) 25.6 (25-47) % [place] % (Auto) 11.4 H (1-9) % Eos % (Auto) 2.9 (0-6) % Baso % (Auto) 0.6 (0-2) % Absolute Neuts (auto) 3.9 (1.5-7.7) 10^3/ul Absolute Lymphs (auto) 1.7 (1.0-4.8) 10^3/ul Absolute Monos (auto) 0.7 (0-0.8) 10^3/ul Absolute Eos (auto) 0.2 (0-0.6) 10^3/ul Absolute Basos (auto) 0 (0-0.2) 10^3/ul Absolute Nucleated RBC 0.01 10^3/ul Nucleated RBC % 0.2 Sodium 132 L (133-145) mmol/L Potassium 3.4 L (3.5-5.0) mmol/L Chloride 102 (101-111) mmol/L Carbon Dioxide 24 (22-32) mmol/L Anion Gap 6 (2-11) mmol/L BUN 12 (6-24) mg/dL Creatinine 1.22 H (0.67-1.17) mg/dL Est GFR ( Amer) 73.0 (>60) Est GFR (Non-Af Amer) 56.7 (>60) BUN/Creatinine Ratio 9.8 (8-20) Glucose 108 H (70-100) mg/dL Lactic Acid 1.2 (0.5-2.0) mmol/L Calcium 8.2 L (8.6-10.3) mg/dL Magnesium (1.9-2.7) mg/dL Total Bilirubin (0.2-1.0) mg/dL AST (13-39) U/L ALT (7-52) U/L Alkaline Phosphatase (34-104) U/L Troponin I (<0.04) ng/mL Total Protein (6.4-8.9) g/dL Albumin (3.2-5.2) g/dL Globulin (2-4) g/dL Albumin/Globulin Ratio (1-3) TSH (0.34-5.60) mcIU/mL Urine Color Urine Appearance Urine pH (5-9) Ur Specific [place] (1.010-1.030) Urine Protein (Negative) Urine Ketones (Negative) Urine Blood (Negative) Urine Nitrate (Negative) Urine Bilirubin (Negative) Urine Urobilinogen (Negative) Ur Leukocyte Esterase (Negative) Urine WBC (Auto) (Absent) Urine RBC (Auto) (Absent) Urine Bacteria (Absent) Urine Glucose (Negative) Assess/Plan/Problems-Billing Mr Moarles is an 85 yo M who has a h/o 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 - Patient Problems (1) UTI (urinary tract infection) Current Visit: Yes Status: Acute Comment: The patient's urine ultimately grew MRSA and E faecalis. Unfortunately the patient was not on good Abx coverage for MRSA or E faecalis until just this AM. COntinue vancomycin for now. Pt remains weak and slightly confused. (2) Stage III chronic kidney disease Current Visit: Yes Status: Acute Code(s): N18.3 - CHRONIC KIDNEY DISEASE, STAGE 3 (MODERATE) SNOMED Code(s): 728212218 Comment: Creatinine is stable and at baseline. Recheck BMP tomorrow. (3) HTN (hypertension) Current Visit: Yes Status: Acute Code(s): I10 - ESSENTIAL (PRIMARY) HYPERTENSION SNOMED Code(s): 06946291 Comment: BP is lower today. Will continue to follow on the current medication regimen. (4) Renal cell cancer Current Visit: Yes Status: Acute Code(s): C64.9 - MALIGNANT NEOPLASM OF UNSP KIDNEY, EXCEPT RENAL PELVIS SNOMED Code(s): 738280084 Comment: Pt is currently off treatment. He will follow up with Dr. Toledo as an outpatient. (5) CAD (coronary artery disease) Current Visit: Yes Status: Acute Code(s): I25.10 - ATHSCL HEART DISEASE OF [place] CORONARY ARTERY W/O ANG PCTRS SNOMED Code(s): 40326235 Comment: No complaints. Continue ASA and metoprolol. (6) DVT prophylaxis Current Visit: Yes Status: Acute Code(s): SGI6355 - SNOMED Code(s): 530119783 Comment: SQ heparin (7) Full code status Current Visit: Yes Status: Acute Code(s): Z78.9 - OTHER SPECIFIED HEALTH STATUS SNOMED Code(s): 444085163
[2016-10-19] MEDS: Psyllium PAK PO SCH (17:44)
[2016-10-19] MEDS: Tamsulosin CAP* 0.4 MG PO SCH (17:47)
[2016-10-19] MEDS: Vancomycin(*) 750 MG in NS 0.9% 250 ML* 250 ML IVPB SCH (17:47)
[2016-10-19] MEDS: Latanoprost 0.005%* 2.5 ml BTL BOTH EYES SCH (21:07)
[2016-10-19] MEDS: Fluticasone NASAL SPRAY 50MCG* 16 gm SPRAY BTL BOTH NARES SCH (21:07)
[2016-10-20] MEDS: Vancomycin(*) 750 MG in NS 0.9% 250 ML* 250 ML IVPB SCH ×3 (02:05→17:58)
[2016-10-20] MEDS: Heparin VIAL(*) 5000 UNITS/ML VIAL (FIVE THOUSAND) SUBCUT SCH ×2 (05:47→15:01)
[2016-10-20 06:26] LABS: Hematocrit 36 % (42-52); Hemoglobin 11.8 g/dl (14.0-18.0); Mean Corpuscular HGB Conc 33 g/dl (31-36); Mean Corpuscular Hemoglobin 27 pg (27-31); Mean Corpuscular Volume 80 fL (80-94); Mean Platelet Volume 8 um3 (7.4-10.4); Red Blood Count 4.45 10^6/ul (4.0-5.4); Red Cell Distribution Width 16 % (10.5-15); White Blood Count 5.5 10^3/ul (3.5-10.8)
[2016-10-20 06:36] LABS: BUN/Creatinine Ratio 12.7 (8-20); EGFR African American 89.7 (>60); EGFR Non-African American 69.7 (>60); Potassium 3.4 mmol/L (3.5-5.0)
[2016-10-20] MEDS: cloNIDine TAB* 0.1 MG PO SCH (09:11)
[2016-10-20] MEDS: Aspirin Low Dose CHEW TAB* 81 MG PO SCH (09:11)
[2016-10-20] MEDS: amLODIPine TAB* 5 MG PO SCH (09:11)
[2016-10-20] MEDS: Metoprolol Tartrate TAB* 50 mg PO SCH ×2 (09:11→17:04)
[2016-10-20] MEDS ORDERED: Vancomycin Trough Check NOTE FOLLOW UP ONE (10:30)
[2016-10-20] MEDS: guaiFENesin LIQ* 100 MG/5 ML UDC PO PRN (12:25)
--- NOTE | 2016-10-20 16:31 | PN ---
Subjective Date of Service: 10/20/16 Interval History: Mr. Morales states that he is feeling well today. He denies complaint including chest pain, SOB, nausea, or abdominal pain. He is hopeful for discharge tomorrow if possible. Objective Active Medications: Acetaminophen (Tylenol Tab*) 650 mg PO Q6H PRN Amlodipine Besylate (Norvasc Tab*) 5 mg PO DAILY [facility] Aspirin (Aspirin Low Dose Tab*) 81 mg PO DAILY [facility] Cetirizine HCl (Zyrtec*) 10 mg PO QPM PRN Clobetasol Propionate (Clobetasol 0.05% Oint*) 1 applic TOPICAL BID PRN Clonidine HCl (Catapres Tab*) 0.1 mg PO DAILY [facility] Fluticasone Propionate (Flonase Nasal [place] 50mcg*) 2 spray BOTH NARES BEDTIME [facility] Guaifenesin (Robitussin*) 5 ml PO Q4H PRN Heparin Sodium (Porcine) (Heparin Vial(*)) 5,000 units SUBCUT Q8HR [facility] Heparin Sodium (Porcine) (Heparin Flush Port (Ivad)) 5 ml FLUSH DAILY [facility] Vancomycin HCl 750 mg/ Sodium (Chloride) 250 mls @ 166.667 mls/hr IVPB Q8H [facility] Latanoprost (Xalatan 0.005%*) 1 drop BOTH EYES BEDTIME [facility] Metoprolol Tartrate (Lopressor Tab*) 25 mg PO BID WITH MEALS [facility] Pharmacy Consult (Vancomycin Per Pharmacy*) 1 note FOLLOW UP . PRN Psyllium Hydrophilic Mucilloid (Metamucil Joe*) 1 pkt PO QPM [facility] Tamsulosin HCl (Flomax Cap*) 0.4 mg PO QPM [facility] Vital Signs 10/19/16 10/19/16 10/20/16 20:00 23:28 08:00 Temperature 98.0 F Pulse Rate 87 Respiratory 18 19 18 Rate Blood Pressure 138/60 (mmHg) O2 Sat by Pulse 93 Oximetry 10/20/16 10/20/16 10/20/16 08:07 11:15 15:36 Temperature 98.0 F 97.4 F 97.9 F Pulse Rate 97 73 81 Respiratory 17 16 16 Rate Blood Pressure 141/58 120/53 137/60 (mmHg) O2 Sat by Pulse 92 96 93 Oximetry Oxygen Devices in Use Now: None Appearance: Elderly male sitting up in bed in NAD Respiratory: Symmetrical Chest Expansion and Respiratory Effort, Clear to Auscultation Cardiovascular: NL Sounds; No Murmurs; No JVD, No Edema Abdominal: NL Sounds; No Tenderness; No Distention Extremities: No Edema Skin: No Rash or Ulcers Neurological: Alert and Oriented x 3, NL Muscle Strength and Tone Nutrition: Taking PO's Result Diagrams: 10/20/16 06:00 10/20/16 06:00 Additional Lab and Data: Lab Results 10/17/16 10/17/16 10/17/16 Range/Units 13:12 13:23 13:23 WBC 9.5 (3.5-10.8) 10^3/ul RBC 4.69 (4.0-5.4) 10^6/ul Hgb 12.7 L (14.0-18.0) g/dl Hct 38 L (42-52) % MCV 82 (80-94) fL MCH 27 (27-31) pg MCHC 33 (31-36) g/dl RDW 17 H (10.5-15) % Plt Count 200 (150-450) 10^3/ul MPV 8 (7.4-10.4) um3 Neut % (Auto) 73.3 (38-83) % Lymph % (Auto) 16.0 L (25-47) % [place] % (Auto) 7.8 (1-9) % Eos % (Auto) 1.9 (0-6) % Baso % (Auto) 1.0 (0-2) % Absolute Neuts (auto) 7.0 (1.5-7.7) 10^3/ul Absolute Lymphs (auto) 1.5 (1.0-4.8) 10^3/ul Absolute Monos (auto) 0.7 (0-0.8) 10^3/ul Absolute Eos (auto) 0.2 (0-0.6) 10^3/ul Absolute Basos (auto) 0.1 (0-0.2) 10^3/ul Absolute Nucleated RBC 0.01 10^3/ul Nucleated RBC % 0.1 Sodium 131 L (133-145) mmol/L Potassium 3.7 (3.5-5.0) mmol/L Chloride 100 L (101-111) mmol/L Carbon Dioxide 25 (22-32) mmol/L Anion Gap 6 (2-11) mmol/L BUN 14 (6-24) mg/dL Creatinine 1.27 H (0.67-1.17) mg/dL Est GFR ( Amer) 69.7 (>60) Est GFR (Non-Af Amer) 54.2 (>60) BUN/Creatinine Ratio 11.0 (8-20) Glucose 123 H (70-100) mg/dL Lactic Acid (0.5-2.0) mmol/L Calcium 8.9 (8.6-10.3) mg/dL Magnesium 1.9 (1.9-2.7) mg/dL Total Bilirubin 0.40 (0.2-1.0) mg/dL AST 12 L (13-39) U/L ALT 7 (7-52) U/L Alkaline Phosphatase 122 H (34-104) U/L Troponin I 0.01 (<0.04) ng/mL Total Protein 6.3 L (6.4-8.9) g/dL Albumin 3.5 (3.2-5.2) g/dL Globulin 2.8 (2-4) g/dL Albumin/Globulin Ratio 1.3 (1-3) TSH 3.07 (0.34-5.60) mcIU/mL Urine Color Yellow Urine Appearance Cloudy Urine pH 6.0 (5-9) Ur Specific [place] 1.015 (1.010-1.030) Urine Protein 2+(100 mg/dl) H (Negative) Urine Ketones Negative (Negative) Urine Blood 3+ H (Negative) Urine Nitrate Positive H (Negative) Urine Bilirubin Negative (Negative) Urine Urobilinogen Negative (Negative) Ur Leukocyte Esterase 3+ H (Negative) Urine WBC (Auto) 3+(>20/hpf) H (Absent) Urine RBC (Auto) 3+(>10/hpf) H (Absent) Urine Bacteria 1+ H (Absent) Urine Glucose Negative (Negative) 10/17/16 10/18/16 10/18/16 Range/Units 13:23 05:35 05:35 WBC 6.6 (3.5-10.8) 10^3/ul RBC 4.31 (4.0-5.4) 10^6/ul Hgb 11.5 L (14.0-18.0) g/dl Hct 35 L (42-52) % MCV 82 (80-94) fL MCH 27 (27-31) pg MCHC 33 (31-36) g/dl RDW 17 H (10.5-15) % Plt Count 173 (150-450) 10^3/ul MPV 8 (7.4-10.4) um3 Neut % (Auto) 59.5 (38-83) % Lymph % (Auto) 25.6 (25-47) % [place] % (Auto) 11.4 H (1-9) % Eos % (Auto) 2.9 (0-6) % Baso % (Auto) 0.6 (0-2) % Absolute Neuts (auto) 3.9 (1.5-7.7) 10^3/ul Absolute Lymphs (auto) 1.7 (1.0-4.8) 10^3/ul Absolute Monos (auto) 0.7 (0-0.8) 10^3/ul Absolute Eos (auto) 0.2 (0-0.6) 10^3/ul Absolute Basos (auto) 0 (0-0.2) 10^3/ul Absolute Nucleated RBC 0.01 10^3/ul Nucleated RBC % 0.2 Sodium 132 L (133-145) mmol/L Potassium 3.4 L (3.5-5.0) mmol/L Chloride 102 (101-111) mmol/L Carbon Dioxide 24 (22-32) mmol/L Anion Gap 6 (2-11) mmol/L BUN 12 (6-24) mg/dL Creatinine 1.22 H (0.67-1.17) mg/dL Est GFR ( Amer) 73.0 (>60) Est GFR (Non-Af Amer) 56.7 (>60) BUN/Creatinine Ratio 9.8 (8-20) Glucose 108 H (70-100) mg/dL Lactic Acid 1.2 (0.5-2.0) mmol/L Calcium 8.2 L (8.6-10.3) mg/dL Magnesium (1.9-2.7) mg/dL Total Bilirubin (0.2-1.0) mg/dL AST (13-39) U/L ALT (7-52) U/L Alkaline Phosphatase (34-104) U/L Troponin I (<0.04) ng/mL Total Protein (6.4-8.9) g/dL Albumin (3.2-5.2) g/dL Globulin (2-4) g/dL Albumin/Globulin Ratio (1-3) TSH (0.34-5.60) mcIU/mL Urine Color Urine Appearance Urine pH (5-9) Ur Specific [place] (1.010-1.030) Urine Protein (Negative) Urine Ketones (Negative) Urine Blood (Negative) Urine Nitrate (Negative) Urine Bilirubin (Negative) Urine Urobilinogen (Negative) Ur Leukocyte Esterase (Negative) Urine WBC (Auto) (Absent) Urine RBC (Auto) (Absent) Urine Bacteria (Absent) Urine Glucose (Negative) Assess/Plan/Problems-Billing Mr Morales is an 85 yo M who has a h/o 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 - Patient Problems (1) UTI (urinary tract infection) Comment: The patient's urine ultimately grew MRSA and E faecalis. Unfortunately the patient was not on good Abx coverage for MRSA or E faecalis until 10/19/16. Continue vancomycin for now. Pt remains weak and slightly confused. (2) CAD (coronary artery disease) Comment: No complaints. Continue ASA and metoprolol. (3) HTN (hypertension) Comment: BP well controlled. Continue to follow on the current medication regimen. (4) Stage III chronic kidney disease Comment: Creatinine is stable and at baseline. (5) DVT prophylaxis Comment: SQ heparin (6) Full code status Status and Disposition: Inpatient with expected LOS > 2 days. Anticipate discharge to home when medically stable.
[2016-10-20] MEDS: Psyllium PAK PO SCH (16:58)
[2016-10-20] MEDS: Tamsulosin CAP* 0.4 MG PO SCH (17:03)
[2016-10-21] MEDS: Latanoprost 0.005%* 2.5 ml BTL BOTH EYES SCH ×2 (00:26→20:33)
[2016-10-21] MEDS: Fluticasone NASAL SPRAY 50MCG* 16 gm SPRAY BTL BOTH NARES SCH ×2 (00:27→20:33)
[2016-10-21] MEDS: Heparin VIAL(*) 5000 UNITS/ML VIAL (FIVE THOUSAND) SUBCUT SCH ×4 (00:27→20:33)
[2016-10-21] MEDS: guaiFENesin LIQ* 100 MG/5 ML UDC PO PRN (00:28)
[2016-10-21] MEDS: Vancomycin(*) 750 MG in NS 0.9% 250 ML* 250 ML IVPB SCH ×3 (03:15→17:38)
[2016-10-21] MEDS: Metoprolol Tartrate TAB* 50 mg PO SCH ×2 (07:58→17:38)
[2016-10-21] MEDS: cloNIDine TAB* 0.1 MG PO SCH (07:58)
[2016-10-21] MEDS: Aspirin Low Dose CHEW TAB* 81 MG PO SCH (07:58)
[2016-10-21] MEDS: amLODIPine TAB* 5 MG PO SCH (07:58)
--- NOTE | 2016-10-21 11:22 | PN ---
Subjective Date of Service: 10/21/16 Interval History: Pt is feeling well. He was confused overnight but knows know that he is in the hospital in [facility]. He states that he has been walking without out difficulty. He denies any pain or SOB. He feels he is ready for d/c home. Objective Active Medications: Acetaminophen (Tylenol Tab*) 650 mg PO Q6H PRN PRN Reason: pain/fever Last Admin: 10/18/16 20:23 Dose: 650 mg Amlodipine Besylate (Norvasc Tab*) 5 mg PO DAILY [facility] Last Admin: 10/21/16 07:58 Dose: 5 mg Aspirin (Aspirin Low Dose Tab*) 81 mg PO DAILY [facility] Last Admin: 10/21/16 07:58 Dose: 81 mg Cetirizine HCl (Zyrtec*) 10 mg PO QPM PRN PRN Reason: ALLERGY SYMPTOMS Clobetasol Propionate (Clobetasol 0.05% Oint*) 1 applic TOPICAL BID PRN PRN Reason: ITCHING Clonidine HCl (Catapres Tab*) 0.1 mg PO DAILY [facility] Last Admin: 10/21/16 07:58 Dose: 0.1 mg Fluticasone Propionate (Flonase Nasal [place] 50mcg*) 2 spray BOTH NARES BEDTIME [facility] Last Admin: 10/21/16 00:27 Dose: 2 spray Guaifenesin (Robitussin*) 5 ml PO Q4H PRN PRN Reason: COUGH Last Admin: 10/21/16 00:28 Dose: 5 ml Heparin Sodium (Porcine) (Heparin Vial(*)) 5,000 units SUBCUT Q8HR [facility] Last Admin: 10/21/16 05:41 Dose: 5,000 units Heparin Sodium (Porcine) (Heparin Flush Port (Ivad)) 5 ml FLUSH DAILY [facility] PRN Reason: Protocol Last Admin: 10/20/16 10:46 Dose: 5 ml Vancomycin HCl 750 mg/ Sodium (Chloride) 250 mls @ 166.667 mls/hr IVPB Q8H [facility] Last Admin: 10/21/16 10:56 Dose: 166.667 mls/hr Latanoprost (Xalatan 0.005%*) 1 drop BOTH EYES BEDTIME [facility] Last Admin: 10/21/16 00:26 Dose: 1 drop Metoprolol Tartrate (Lopressor Tab*) 25 mg PO BID WITH MEALS [facility] Last Admin: 10/21/16 07:58 Dose: 25 mg Pharmacy Consult (Vancomycin Per Pharmacy*) 1 note FOLLOW UP . PRN PRN Reason: PER PROTOCOL Psyllium Hydrophilic Mucilloid (Metamucil Joe*) 1 pkt PO QPM [facility] Last Admin: 10/20/16 16:58 Dose: Not Given Tamsulosin HCl (Flomax Cap*) 0.4 mg PO QPM [facility] Last Admin: 10/20/16 17:03 Dose: 0.4 mg Vital Signs 10/20/16 10/20/16 10/20/16 15:36 20:00 20:33 Temperature 97.9 F 97.7 F Pulse Rate 81 86 Respiratory 16 18 20 Rate Blood Pressure 137/60 135/56 (mmHg) O2 Sat by Pulse 93 93 Oximetry 10/20/16 10/21/16 10/21/16 23:33 07:40 08:00 Temperature 97.8 F 97.7 F Pulse Rate 87 85 Respiratory 18 16 18 Rate Blood Pressure 142/60 139/66 (mmHg) O2 Sat by Pulse 96 93 Oximetry Oxygen Devices in Use Now: None Appearance: Elderly male lying in bed, NAD Eyes: No Scleral Icterus Ears/Nose/Mouth/Throat: Mucous Membranes Moist Respiratory: Symmetrical Chest Expansion and Respiratory Effort, Clear to Auscultation Cardiovascular: NL Sounds; No Murmurs; No JVD, RRR, No Edema Abdominal: NL Sounds; No Tenderness; No Distention Extremities: No Clubbing, Cyanosis Skin: No Rash or Ulcers, No Nodules or Sclerosis Neurological: Alert and Oriented x 3 Result Diagrams: 10/20/16 06:00 10/20/16 06:00 Additional Lab and Data: Lab Results 10/17/16 10/17/16 10/17/16 Range/Units 13:12 13:23 13:23 WBC 9.5 (3.5-10.8) 10^3/ul RBC 4.69 (4.0-5.4) 10^6/ul Hgb 12.7 L (14.0-18.0) g/dl Hct 38 L (42-52) % MCV 82 (80-94) fL MCH 27 (27-31) pg MCHC 33 (31-36) g/dl RDW 17 H (10.5-15) % Plt Count 200 (150-450) 10^3/ul MPV 8 (7.4-10.4) um3 Neut % (Auto) 73.3 (38-83) % Lymph % (Auto) 16.0 L (25-47) % [place] % (Auto) 7.8 (1-9) % Eos % (Auto) 1.9 (0-6) % Baso % (Auto) 1.0 (0-2) % Absolute Neuts (auto) 7.0 (1.5-7.7) 10^3/ul Absolute Lymphs (auto) 1.5 (1.0-4.8) 10^3/ul Absolute Monos (auto) 0.7 (0-0.8) 10^3/ul Absolute Eos (auto) 0.2 (0-0.6) 10^3/ul Absolute Basos (auto) 0.1 (0-0.2) 10^3/ul Absolute Nucleated RBC 0.01 10^3/ul Nucleated RBC % 0.1 Sodium 131 L (133-145) mmol/L Potassium 3.7 (3.5-5.0) mmol/L Chloride 100 L (101-111) mmol/L Carbon Dioxide 25 (22-32) mmol/L Anion Gap 6 (2-11) mmol/L BUN 14 (6-24) mg/dL Creatinine 1.27 H (0.67-1.17) mg/dL Est GFR ( Amer) 69.7 (>60) Est GFR (Non-Af Amer) 54.2 (>60) BUN/Creatinine Ratio 11.0 (8-20) Glucose 123 H (70-100) mg/dL Lactic Acid (0.5-2.0) mmol/L Calcium 8.9 (8.6-10.3) mg/dL Magnesium 1.9 (1.9-2.7) mg/dL Total Bilirubin 0.40 (0.2-1.0) mg/dL AST 12 L (13-39) U/L ALT 7 (7-52) U/L Alkaline Phosphatase 122 H (34-104) U/L Troponin I 0.01 (<0.04) ng/mL Total Protein 6.3 L (6.4-8.9) g/dL Albumin 3.5 (3.2-5.2) g/dL Globulin 2.8 (2-4) g/dL Albumin/Globulin Ratio 1.3 (1-3) TSH 3.07 (0.34-5.60) mcIU/mL Urine Color Yellow Urine Appearance Cloudy Urine pH 6.0 (5-9) Ur Specific [place] 1.015 (1.010-1.030) Urine Protein 2+(100 mg/dl) H (Negative) Urine Ketones Negative (Negative) Urine Blood 3+ H (Negative) Urine Nitrate Positive H (Negative) Urine Bilirubin Negative (Negative) Urine Urobilinogen Negative (Negative) Ur Leukocyte Esterase 3+ H (Negative) Urine WBC (Auto) 3+(>20/hpf) H (Absent) Urine RBC (Auto) 3+(>10/hpf) H (Absent) Urine Bacteria 1+ H (Absent) Urine Glucose Negative (Negative) 10/17/16 10/18/16 10/18/16 Range/Units 13:23 05:35 05:35 WBC 6.6 (3.5-10.8) 10^3/ul RBC 4.31 (4.0-5.4) 10^6/ul Hgb 11.5 L (14.0-18.0) g/dl Hct 35 L (42-52) % MCV 82 (80-94) fL MCH 27 (27-31) pg MCHC 33 (31-36) g/dl RDW 17 H (10.5-15) % Plt Count 173 (150-450) 10^3/ul MPV 8 (7.4-10.4) um3 Neut % (Auto) 59.5 (38-83) % Lymph % (Auto) 25.6 (25-47) % [place] % (Auto) 11.4 H (1-9) % Eos % (Auto) 2.9 (0-6) % Baso % (Auto) 0.6 (0-2) % Absolute Neuts (auto) 3.9 (1.5-7.7) 10^3/ul Absolute Lymphs (auto) 1.7 (1.0-4.8) 10^3/ul Absolute Monos (auto) 0.7 (0-0.8) 10^3/ul Absolute Eos (auto) 0.2 (0-0.6) 10^3/ul Absolute Basos (auto) 0 (0-0.2) 10^3/ul Absolute Nucleated RBC 0.01 10^3/ul Nucleated RBC % 0.2 Sodium 132 L (133-145) mmol/L Potassium 3.4 L (3.5-5.0) mmol/L Chloride 102 (101-111) mmol/L Carbon Dioxide 24 (22-32) mmol/L Anion Gap 6 (2-11) mmol/L BUN 12 (6-24) mg/dL Creatinine 1.22 H (0.67-1.17) mg/dL Est GFR ( Amer) 73.0 (>60) Est GFR (Non-Af Amer) 56.7 (>60) BUN/Creatinine Ratio 9.8 (8-20) Glucose 108 H (70-100) mg/dL Lactic Acid 1.2 (0.5-2.0) mmol/L Calcium 8.2 L (8.6-10.3) mg/dL Magnesium (1.9-2.7) mg/dL Total Bilirubin (0.2-1.0) mg/dL AST (13-39) U/L ALT (7-52) U/L Alkaline Phosphatase (34-104) U/L Troponin I (<0.04) ng/mL Total Protein (6.4-8.9) g/dL Albumin (3.2-5.2) g/dL Globulin (2-4) g/dL Albumin/Globulin Ratio (1-3) TSH (0.34-5.60) mcIU/mL Urine Color Urine Appearance Urine pH (5-9) Ur Specific [place] (1.010-1.030) Urine Protein (Negative) Urine Ketones (Negative) Urine Blood (Negative) Urine Nitrate (Negative) Urine Bilirubin (Negative) Urine Urobilinogen (Negative) Ur Leukocyte Esterase (Negative) Urine WBC (Auto) (Absent) Urine RBC (Auto) (Absent) Urine Bacteria (Absent) Urine Glucose (Negative) Assess/Plan/Problems-Billing Mr Morales is an 85 yo M who has a h/o 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 - Patient Problems (1) UTI (urinary tract infection) Current Visit: Yes Status: Acute Comment: The patient's urine ultimately grew MRSA and E faecalis. Will d/c pt home on linezolid to complete 7 more days of therapy. His weakness is improved and he feels that he is ready for d/c home today. (2) Stage III chronic kidney disease Current Visit: Yes Status: Acute Code(s): N18.3 - CHRONIC KIDNEY DISEASE, STAGE 3 (MODERATE) SNOMED Code(s): 786022353 Comment: Creatinine is stable and at baseline. (3) HTN (hypertension) Current Visit: Yes Status: Acute Code(s): I10 - ESSENTIAL (PRIMARY) HYPERTENSION SNOMED Code(s): 66518612 Comment: BP well controlled. Continue to follow on the current medication regimen. (4) Renal cell cancer Current Visit: Yes Status: Acute Code(s): C64.9 - MALIGNANT NEOPLASM OF UNSP KIDNEY, EXCEPT RENAL PELVIS SNOMED Code(s): 057437975 Comment: Pt is currently off treatment. He will follow up with Dr. [place] as an outpatient. (5) CAD (coronary artery disease) Current Visit: Yes Status: Acute Code(s): I25.10 - ATHSCL HEART DISEASE OF [place] CORONARY ARTERY W/O ANG PCTRS SNOMED Code(s): 67456365 Comment: No complaints. Continue ASA and metoprolol. (6) DVT prophylaxis Current Visit: Yes Status: Acute Code(s): CRG3787 - SNOMED Code(s): 213857091 Comment: SQ heparin (7) Full code status Current Visit: Yes Status: Acute Code(s): Z78.9 - OTHER SPECIFIED HEALTH STATUS SNOMED Code(s): 358980933 Status and Disposition: d/c pt home
[2016-10-21] MEDS: Tamsulosin CAP* 0.4 MG PO SCH (17:38)
[2016-10-21] MEDS: Psyllium PAK PO SCH (17:38)
[2016-10-22] MEDS: Vancomycin(*) 750 MG in NS 0.9% 250 ML* 250 ML IVPB SCH (03:05)
[2016-10-22] MEDS: Heparin VIAL(*) 5000 UNITS/ML VIAL (FIVE THOUSAND) SUBCUT SCH (04:51)
[2016-10-22 08:25] VITALS: BP 152/72
[2016-10-22] MEDS: Metoprolol Tartrate TAB* 50 mg PO SCH (08:31)
[2016-10-22] MEDS: cloNIDine TAB* 0.1 MG PO SCH (08:31)
[2016-10-22] MEDS: amLODIPine TAB* 5 MG PO SCH (08:31)
[2016-10-22] MEDS: Aspirin Low Dose CHEW TAB* 81 MG PO SCH (08:31)
[2016-10-22] MEDS ORDERED: Linezolid TAB* 600 MG PO ONE (08:57)
--- NOTE | 2016-10-22 09:16 | PN ---
Hospitalist Progress Note Patient's discharge was delayed yesterday as his was unable to pick him up. Patient was re-evaluated this am. He had no complaints from overnight apart from insomnia. He has a good appetite without abdominal pain, n/v. No confusion. Energy is improving. He is looking forward to being home. Discharge was prepared by Dr Interiano yesterday. Please see her discharge summary from 10/21/16 for more details. Discharge Diagnosis: 1. Complicated UTI secondary to MRSA and E faecalis 2. Encephalopathy - resolved
--- NOTE | 2016-10-24 10:35 | DS ---
DISCHARGE SUMMARY: DATE OF ADMISSION: 10/17/16 DATE OF DISCHARGE: 10/22/16 PRIMARY CARE PROVIDER: Dr. Cordova. PRINCIPAL DIAGNOSIS: Methicillin-resistant Staphylococcus aureus and Enterococcus faecalis urinary tract infection with resultant weakness. SECONDARY DIAGNOSES: 1. History of metastatic renal cell carcinoma. 2. Stage 3 chronic kidney disease. 3. Hypertension. 4. Coronary artery disease. DISCHARGE MEDICATIONS: 1. Psyllium 1 packet p.o. daily. 2. Clobetasol ointment apply topically twice daily p.r.n. rash. 3. Hydrocortisone rectal 2.5% DE daily p.r.n. hemorrhoidal itching. 4. Xalatan 1 drop to both eyes at bedtime. 5. Claritin 10 mg p.o. q.a.m. p.r.n. allergies. 6. Cod liver oil 1250 units p.o. daily. 7. Aspirin 81 mg p.o. daily. 8. Flomax 0.4 mg p.o. daily. 9. Flonase 2 sprays to each nostril at bedtime. 10. Amlodipine 5 mg p.o. daily. 11. Clonidine 0.1 mg p.o. daily. 12. Metoprolol tartrate 25 mg p.o. b.i.d. 13. Linezolid 600 mg p.o. b.i.d. x5 days. HOSPITAL COURSE: Mr. Morales is an 85-year-old male, who presented to the emergency room on 10/17/16 with complaints of weakness. In the emergency room, the patient was found to have an abnormal urinalysis, positive for nitrites, leukocyte esterase, and bacteria. He was started on treatment for urinary tract infection with Cipro. Ultimately, his urine came back positive for Staph aureus. At that time, the Cipro was changed to cefazolin. The following day, the Staph aureus came back positive as MRSA. At that point, the patient's antibiotic was changed to vancomycin. The patient was also growing Enterococcus faecalis from his urine culture. The patient remained on IV vancomycin x2 days. He improved in terms of his weakness. He has been ambulating with the nursing staff and Physical Therapy. He was, in fact, cleared by Physical Therapy to the nursing mobility protocol. At this point, it is felt that the patient is stable for discharge home. The patient will otherwise be maintained on his usual home medication regimen. He will continue linezolid 600 mg p.o. twice daily x5 more days to complete 7 days' worth of therapy. FOLLOWUP CONCERNS: The patient is being discharged home today, 10/21/16. The patient is to follow up with Dr. Cordova on 10/28/16 at [address] Toledo on 11/28/16 at 10 a.m. ACTIVITY LEVEL: As tolerated. DIET: Regular. CONDITION ON DISCHARGE: Stable. TIME SPENT: Thirty-five minutes was spent discharging this patient. CC: Dr. Cordova; Dr. Toledo* [id number]/[facility] #: [id number] [facility]
== END 2016-10-22 10:25 | disposition home or self-care (01) | DRG 698 ==
LOC: ED 12:50 → MEDTELE 14:54 → OBSVTOIN 10-19 08:58 → MED 10-19 12:22
PROVIDERS: ADMIT Internal Medicine; ATTEND Internal Medicine
DX: T83.518A Infection and inflammatory reaction due to other urinary catheter, initial encounter (principal); G93.40 Encephalopathy, unspecified; C78.7 Secondary malignant neoplasm of liver and intrahepatic bile duct; C78.00 Secondary malignant neoplasm of unspecified lung; C77.2 Secondary and unspecified malignant neoplasm of intra-abdominal lymph nodes; C79.51 Secondary malignant neoplasm of bone; N18.3 Chronic kidney disease, stage 3 (moderate); B95.62 Methicillin resistant Staphylococcus aureus infection as the cause of diseases classified elsewhere; C64.2 Malignant neoplasm of left kidney, except renal pelvis; C79.72 Secondary malignant neoplasm of left adrenal gland; I13.10 Hypertensive heart and chronic kidney disease without heart failure, with stage 1 through stage 4 chronic kidney disease, or unspecified chronic kidney disease; I25.10 Atherosclerotic heart disease of native coronary artery without angina pectoris; K21.9 Gastro-esophageal reflux disease without esophagitis; N40.0 Benign prostatic hyperplasia without lower urinary tract symptoms; Z96.641 Presence of right artificial hip joint; Z79.82 Long term (current) use of aspirin; Z79.899 Other long term (current) drug therapy; Z88.0 Allergy status to penicillin; Z90.5 Acquired absence of kidney; X58.XXXA Exposure to other specified factors, initial encounter
CPT/HCPCS: 36415; 71010; 76775; 76857; 80048; 80053; 80202; 81003; 81015; 83605; 83735; 84443; 84484; 85025; 85027; 87040; 87077; 87086; 87186; A9270-GY; G0378; J0690; J0744; J1642; J1644; J3370

== ENCOUNTER 2017-03-05 17:41 | Emergency (ER) | payer MEDICARE, OTHER ==
[2017-03-05 20:55] VITALS: BP 128/61
--- NOTE | 2017-03-06 04:58 | ED ---
Mendoza Rainey Rebecca, scribed for CateRich on 03/05/17 at 2012 . GI/ HPI - HPI Summary HPI Summary: Pt is an 86 y/o M who presents to ED c/o plugged zarco catheter. Daughter reports that his urine is coming out around the catheter and from the penis causing him to wet his pants about every 4 hours. reports sx have been present for about the last 2 weeks. Denies fever, weakness, dizziness and abd pain. 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 His catheter was last replaced [address] Mead's office. Discussed his symptoms with Dr. Mead's office today who recommended evaluation by [facility] ED. Is not currently on Abx. - History of Current Complaint Chief Complaint: EDUrogenitalProblems Time Seen by Provider: 03/05/17 20:10 Stated Complaint: CATHETER LEAKING, SENT BY DR LAINEZ Hx Obtained From: Patient Onset/Duration: Started Weeks Ago - 2 weeks, Still Present Timing: Intermittent - Wets pants every 4 hours Current Severity: None Pain Intensity: 0 Location of Pain: None Associated Signs and Symptoms: Positive: Other: - Plugged zarco catheter. Negative: Weakness, Fever - Additional Pertinent History Primary Care Physician: CHRISTINA - Allergy/Home Medications Allergies/Adverse Reactions: Allergies Allergy/AdvReac Type Severity Reaction Status Date / Time Penicillins AdvReac DIZZY, Verified 03/05/17 17:49 DISORIENTED HAYFEVER-SEASONAL Allergy POST NASAL Uncoded 03/05/17 17:49 DRIP PMH/Surg Hx/FS Hx/Imm Hx Endocrine/Hematology History: Reports: Hx Systemic Lupus Erythematosus Denies: Hx Anticoagulant Therapy, Hx Diabetes, Hx Thyroid Disease Cardiovascular History: Reports: Hx Coronary Artery Disease, Hx Hypertension Denies: Hx Congestive Heart Failure, Hx Pacemaker/ICD, Other Cardiovascular Problems/Disorders Respiratory History: Reports: Hx Pneumonia, Hx Seasonal Allergies, Other Respiratory Problems/Disorders - hx pneumonia in december Denies: Hx Chronic Obstructive Pulmonary Disease (COPD) GI History: Denies: Other GI Disorders History: Reports: Hx Benign Prostatic Hyperplasia, Hx Kidney Stones - 15 YEARS AGO NONE SINCE, Hx Renal Disease, Other Problems/Disorders - chronic kidney disease, 4/11 l kidney removal, UTI Denies: Hx Dialysis Musculoskeletal History: Reports: Hx Bursitis - BILATERAL SHOULDER YEARS AGO, NO PROBLEM NOW Denies: Hx Arthritis, Hx Rheumatoid Arthritis, Hx Back Problems, Hx Osteoporosis Sensory History: Reports: Hx Contacts or Glasses Denies: Hx Hearing Aid Opthamlomology History: Reports: Hx Contacts or Glasses Neurological History: Reports: Hx Headaches - not too bad, takes tylenol for them Denies: Hx Dementia, Hx Seizures Psychiatric History: Denies: Hx Panic Disorder - Cancer History Cancer Type, Location and Year: kidney dx 10/2010 - Lt NEPHRECTOMY by dr. vora at [facility] Chemotherapy: Yes - current Hx Radiation Therapy: No Hx Palliative Cancer Treatment: No - Surgical History Surgery Procedure, Year, and Place: left nephrectomy 10/27/10. inguinal hernia repair x 2 ;. powerport placement - [facility] by dr. alas 05/25 Hx Anesthesia Reactions: No - Immunization History Date of Tetanus Vaccine: Unk Date of Influenza Vaccine: Fall 2011 Infectious Disease History: Reports: Hx Tuberculosis - 60 years ago Denies: Traveled Outside the [place] in Last 30 Days - Family History Known Family History: Positive: Hypertension - Social History Alcohol Use: Daily Alcohol Amount: 1 glass wine Hx Substance Use: No Substance Use Type: Reports: None Hx Tobacco Use: Yes Smoking Status (MU): Former Smoker Type: Cigarettes Amount Used/How Often: 1 ppd Length of Time of Smoking/Using Tobacco: 30 years Have You Smoked in the Last Year: No Review of Systems Negative: Fever Negative: Abdominal Pain Positive: other - Plugged zarco catheter Neurological: Other - NEGATIVE: dizziness Negative: Weakness All Other Systems Reviewed And Are Negative: Yes Physical Exam - Summary Physical Exam Summary: Appearance: Well appearing, no pain distress Skin: warm, dry, reflects adequate perfusion Head/face: normal Eyes: EOMI, MORAIMA ENT: normal Neck: supple, nontender Respiratory: CTA, breath sounds present Cardiovascular: RRR, pulses symmetrical Abdomen: nontender, soft, has a zarco catheter in place Bowel: present Musculoskeletal: normal, strength/ROM intact Neuro: normal, sensory motor intact, A&Ox3 Triage Information Reviewed: Yes Vital Signs On Initial Exam: Initial Vitals Temp Pulse Resp BP Pulse Ox 98.4 F 89 16 118/56 99 03/05/17 17:49 03/05/17 17:49 03/05/17 17:49 03/05/17 17:49 03/05/17 17:49 Vital Signs Reviewed: Yes Diagnostics - Vital Signs Vital Signs Temp Pulse Resp BP Pulse Ox 03/05/17 17:49 98.4 F 89 16 118/56 99 - Laboratory Lab Statement: Any lab studies that have been ordered have been reviewed, and results considered in the medical decision making process. GIGU Course/Dx - Course Assessment/Plan: Pt is an 86 y/o M who presents to ED c/o plugged zarco catheter. Daughter reports that his urine is coming out around the catheter and from the penis causing him to wet his pants about every 4 hours. reports sx have been present for about the last 2 weeks. Denies fever, weakness, dizziness and abd pain. 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 His catheter was last replaced [address] Mead's office. Discussed his symptoms with Dr. Mead's office today who recommended evaluation by [facility] ED. Is not currently on Abx. In the ED course, his zarco was changed from a size 16 to an 18. He will be D/C to home with Dx of urinary retention and zarco catheter problem and a follow up with his PCP. He understands and agrees. - Diagnoses Provider Diagnoses: Zarco catheter problem, Urinary retention Discharge - Discharge Plan Condition: Stable Disposition: HOME Patient Education Materials: Zarco Catheter Placement and Care (ED), Urinary Retention in Men (ED) Referrals: Jake Cordova MD [Primary Care Provider] - 3 Days The documentation as recorded by the Mendoza jeter Rebecca accurately reflects the service I personally performed and the decisions made by , Rich Esposito.
== END 2017-03-05 20:56 | disposition home or self-care (01) ==
LOC: ED 17:41
DX: T83.098A Other mechanical complication of other urinary catheter, initial encounter (principal); R33.9 Retention of urine, unspecified; Z87.891 Personal history of nicotine dependence; M32.9 Systemic lupus erythematosus, unspecified; I25.10 Atherosclerotic heart disease of native coronary artery without angina pectoris; I10 Essential (primary) hypertension; Z85.830 Personal history of malignant neoplasm of bone; Z88.0 Allergy status to penicillin
CPT/HCPCS: 99281

== ENCOUNTER 2017-03-24 16:02 | Observation (INO) | payer MEDICARE, OTHER ==
--- NOTE | 2017-03-24 16:38 | RAD ---
INDICATION: Renal carcinoma COMPARISON: Bone scan March 21, 2017; CT brain November 27, 2015 TECHNIQUE: Noncontrast axial source images were acquired from the skull base to the vertex. FINDINGS: Ventricles/sulci: There is age-related cortical atrophy with compensatory dilatation of the CSF spaces. Brain parenchyma: There is mild, patchy, decreased attenuation in the periventricular and subcortical white matter consistent with mild chronic microvascular ischemia. Intracranial hemorrhage:None. Extra-axial spaces: There are no abnormal extra axial fluid collections or evidence of extra-axial mass. Calvarium: There is no calvarial fracture or other calvarial abnormality. Scalp: There is no evidence of scalp or extracalvarial soft tissue abnormality. Paranasal sinuses/mastoid: The paranasal sinuses and mastoid air cells are clear. Other: None. IMPRESSION: No acute intracranial findings
[2017-03-24 17:05] LABS: Hematocrit 40 % (42-52); Hemoglobin 13.1 g/dl (14.0-18.0); Mean Corpuscular HGB Conc 33 g/dl (31-36); Mean Corpuscular Hemoglobin 26 pg (27-31); Mean Corpuscular Volume 81 fL (80-94); Mean Platelet Volume 7 um3 (7.4-10.4); Red Cell Distribution Width 17 % (10.5-15); White Blood Count 10.8 10^3/ul (3.5-10.8)
[2017-03-24 17:20] LABS: Albumin 3.7 g/dL (3.2-5.2); Calcium 9.7 mg/dL (8.6-10.3); EGFR African American 60.6 (>60); EGFR Non-African American 47.1 (>60); Potassium 4.5 mmol/L (3.5-5.0); Total Bilirubin 0.3 mg/dL (0.2-1.0); Total Protein 6.7 g/dL (6.4-8.9)
[2017-03-24 17:22] LABS: Troponin I 0.01 ng/mL (<0.04)
[2017-03-24] MEDS ORDERED: Al Hydrox/Mg Hydrox/Simet LIQ* 30 ML UDC PO PRN (18:26)
[2017-03-24] MEDS ORDERED: Clobetasol 0.05% OINT* 30 GM TUBE TOPICAL PRN (18:27)
[2017-03-24] MEDS ORDERED: Hydrocortisone SUPP* 25 MG SUPP (2.5%) PR PRN (18:33)
[2017-03-24] MEDS ORDERED: Cetirizine* 10 MG TAB PO PRN (18:33)
[2017-03-24 18:38] LABS: TSH (Thyroid Stimulating Horm) 5.92 mcIU/mL (0.34-5.60)
[2017-03-24] MEDS: NS 0.9% 1000 ML* 1,000 ML IV SCH (19:18)
[2017-03-24] MEDS ORDERED: Gadoteridol* (CONTRAST) 279.3 MG/ML 10 ML IV ONE (20:27)
[2017-03-24] MEDS ORDERED: Fluticasone NASAL SPRAY 50MCG* 16 gm SPRAY BTL BOTH NARES SCH (21:00)
[2017-03-24] MEDS ORDERED: Latanoprost 0.005%* 2.5 ml BTL BOTH EYES SCH (21:00)
[2017-03-24] MEDS: Chlorhexidine MOUTHWASH 0.12%* 15 ML UDC SWISH SPIT SCH (21:19)
[2017-03-24] MEDS ORDERED: Heparin VIAL(*) 5000 UNITS/ML VIAL (FIVE THOUSAND) SUBCUT SCH (22:00)
--- NOTE | 2017-03-25 01:04 | HP ---
HISTORY AND PHYSICAL: DATE OF ADMISSION: 03/24/17 CHIEF COMPLAINT: Left leg weakness. HISTORY OF PRESENT ILLNESS: This is an 86-year-old man with history of renal cell carcinoma, who presents with sudden onset of left leg weakness today. He had just showered and was sitting on the edge of the bed with his home health aide and his daughter when he was reported to be leaning backwards and to the left. His daughter and home health aide tried to help him to stand up with his walker and he was suddenly unable to walk due to left leg weakness. He has never experienced this before. He normally has right leg weakness due to a right hip arthroplasty done in August, which causes him to walk with a walker , but never has weakness in his left leg. After his daughter helped him sit down in the chair, they called EMS and he was brought to the emergency department. Throughout this symptom, he denies feeling lightheadedness, dizziness, confusion and his daughter reports that he was cognitively intact. At this time, he feels back to himself and has no complaints. He was recently treated for a UTI and finished the antibiotics yesterday. He reports that the symptoms, which included leaking from Kern catheter have completely resolved. He has had no fevers. He has had a good appetite and has no other complaints. PAST MEDICAL HISTORY: 1. Renal cell carcinoma. He has not received chemotherapy since last summer. Mets are known to the spleen, iliac spine, adrenal glands and lungs. 2. CKD. 3. Hypertension. 4. Urinary retention and BPH with a chronic Kern catheter. ALLERGIES: PENICILLIN. SOCIAL HISTORY: He lives at home with his and has home health aide twice a week. He uses a walker to ambulate since August when he had a hip arthroplasty. He is a former smoker and occasionally drinks alcohol. REVIEW OF SYSTEMS: Negative for weight gain or weight loss, negative for headache, dizziness, lightheadedness, confusion, forgetfulness, negative for blurry vision, negative for dysphagia, negative for slurred speech. He denies chest pain shortness of breath and palpitations. He denies nausea, vomiting, constipation, diarrhea. Denies numbness, tingling. PHYSICAL EXAMINATION GENERAL: Alert, well-appearing man. VITAL SIGNS: On admission, temperature 97.3, heart rate 74, respiratory rate 18 , pulse ox 98% on room air, blood pressure 149/59. HEENT: Pupils equal, round, and reactive to light. Extraocular movements intact. Moist mucosa. NECK: Mild anterior cervical lymphadenopathy. No JVP. Thyroid non-palpable. CHEST: Port in right chest wall, regular rate and rhythm. No murmurs. Lungs clear bilaterally. ABDOMEN: Soft, nontender, nondistended. EXTREMITIES: No ecchymosis. Pulses 2+ bilaterally. No rashes. No edema. NEUROLOGIC: No nystagmus. Cranial nerves II through are XII are intact. Strength is 5/5 in upper and lower extremities. No dysdiadochokinesias noted. He is oriented x3. He is able to follow commands and name objects accurately. Upon standing with eyes open, he tends to fall backwards and when he attempts to take steps forward, he has a stiff shuffling gait. He is unable to walk without 100% assistance. LABORATORY DATA: On admission, sodium 130, potassium 4.3, chloride of 98, bicarb 26, BUN 20, creatinine 1.43. White blood cell 10.8, hemoglobin 13.1, platelets 298. Brain CT showed no acute intracranial findings. EKG with normal sinus rhythm, normal axis, first degree AV block with a right bundle branch block. ASSESSMENT AND PLAN: This is an 86-year-old man with history of metastatic renal cell carcinoma presenting with sudden onset left lower extremity weakness and decreased balance today. 1. Loss of balance. I am most concerned for mets given the nature of renal cell carcinoma. I am starting with an MRI with and without contrast tonight. Consult PT. Monitor on telemetry overnight. I talked with Neurology, who will evaluate the patient. 2. Chronic kidney disease. His creatinine is at baseline today, his GFR is 47 , so I am giving gadolinium with the MRI. 3. Hyponatremia. May be slightly volume deplete given recent urinary tract infection. Start normal saline before gadolinium administration. 4. Recent urinary tract infection. Recheck UA today. 5. Metastatic renal cell carcinoma. He is not currently undergoing therapy; however, we need to evaluate for progression of disease. 6. DVT prophylaxis. Hold until further evaluation with MRI. 7. Chronic urinary retention with Kern catheter. Maintain Kern catheter and monitor I's and O's. [id number]/[facility] #: [id number] [facility]
[2017-03-25] MEDS ORDERED: Alteplase (CATHFLO)* 2 MG VIAL IV ONE (02:26)
[2017-03-25] MEDS ORDERED: Acetaminophen TAB* 325 MG PO PRN (02:26)
[2017-03-25 03:57] LABS: Urine Bacteria Absent (Absent); Urine Bilirubin Negative (Negative); Urine Glucose Negative (Negative); Urine Nitrite Negative (Negative)
[2017-03-25] MEDS: NS 0.9% 1000 ML* 1,000 ML IV SCH (05:37)
[2017-03-25 06:00] LABS: Hematocrit 38 % (42-52); Hemoglobin 12.7 g/dl (14.0-18.0); Mean Corpuscular HGB Conc 33 g/dl (31-36); Mean Corpuscular Hemoglobin 27 pg (27-31); Mean Corpuscular Volume 81 fL (80-94); Mean Platelet Volume 7 um3 (7.4-10.4); Red Blood Count 4.75 10^6/ul (4.0-5.4); Red Cell Distribution Width 17 % (10.5-15)
[2017-03-25 06:13] LABS: Calcium 9.3 mg/dL (8.6-10.3); EGFR African American 68.2 (>60); EGFR Non-African American 53.1 (>60)
[2017-03-25] MEDS ORDERED: Metoprolol Tartrate TAB* 25 MG PO SCH (08:00)
[2017-03-25] MEDS ORDERED: Cholecalciferol TAB* 400 UNIT PO SCH (09:00)
[2017-03-25] MEDS ORDERED: amLODIPine TAB* 5 MG PO SCH (09:00)
[2017-03-25] MEDS ORDERED: Aspirin Low Dose CHEW TAB* 81 MG PO SCH (09:00)
[2017-03-25] MEDS ORDERED: cloNIDine TAB* 0.1 MG PO SCH (09:00)
[2017-03-25] MEDS: Chlorhexidine MOUTHWASH 0.12%* 15 ML UDC SWISH SPIT SCH (10:34)
--- NOTE | 2017-03-25 10:43 | RAD ---
Indication: Renal cell carcinoma with left lower extremity weakness. Image sequences: Sagittal and axial T1, axial T2 FLAIR, diffusion, susceptibility weighted images of the brain were obtained. 16 mL of ProHance was injected and postcontrast axial, sagittal and coronal T1-weighted images were repeated. Ventricular structures are midline. No midline shift is noted. Central and cortical atrophy is noted. FLAIR images demonstrates multiple foci of signal abnormalities in the deep white matter bilaterally. This is consistent with chronic ischemic change. No restriction of diffusion is noted. The postcontrast images demonstrates no definite enhancing lesions. The visualized calvaria are grossly unremarkable. Susceptibility weighted images demonstrates no residual hemosiderin. IMPRESSION: NO INTRACRANIAL MASS OR HEMORRHAGE IS NOTED. NO ABNORMALLY ENHANCING LESIONS ARE NOTED. CHRONIC ISCHEMIC WHITE MATTER CHANGE IS NOTED.
--- NOTE | 2017-03-25 11:07 | ED ---
Allison Rainey Thomas, scribed for Tonny Mendoza MD on 03/24/17 at 1654 . Neurological HPI - HPI Summary HPI Summary: The patient is a 86 y/o M BIBA with neurological deficits that occurred today at 15:30 and have since resolved. He says that his aide came over to help him take a shower and when the patient tried to get up he noticed that his LLE was dragging. It is not clear if this is the only symptom because too much was happening. There was too much chaos to know if the patient had any weakness anywhere else. He does not have any troubles with speech. He is right-handed. He has not yet walked so he isnt sure yet if he has any disruptions to his gait. NIH=0. - History of Current Complaint Chief Complaint: EDNeurologicalDeficit Stated Complaint: POSS STROKE Time Seen by Provider: 03/24/17 16:06 Hx Obtained From: Patient, EMS Onset/Duration: Sudden Onset, Started hours ago - onset 15:30, Resolved Timing: Constant Pain Intensity: 0 Pain Scale Used: 0-10 Numeric Character: Motor Weakness - to LLE Aggravating: Nothing Alleviating: Spontanious Resolution Associated Signs and Symptoms: Positive: Nothing. Negative: Impaired Speech - Additional Pertinent History Primary Care Physician: [id number] - Allergy/Home Medications Allergies/Adverse Reactions: Allergies Allergy/AdvReac Type Severity Reaction Status Date / Time Penicillins AdvReac DIZZY, Verified 03/05/17 17:49 DISORIENTED HAYFEVER-SEASONAL Allergy POST NASAL Uncoded 03/05/17 17:49 DRIP Home Medications: Home Medications Chlorhexidine MOUTHWASH 0.12%* [Peridex Mouth Wash 0.12%*] 15 ml SWISH SPIT BID 03/24/17 [History Confirmed 03/24/17] PMH/Surg Hx/FS Hx/Imm Hx Previously Healthy: No Endocrine/Hematology History: Reports: Hx Systemic Lupus Erythematosus Denies: Hx Anticoagulant Therapy, Hx Diabetes, Hx Thyroid Disease Cardiovascular History: Reports: Hx Coronary Artery Disease, Hx Hypertension Denies: Hx Congestive Heart Failure, Hx Pacemaker/ICD, Other Cardiovascular Problems/Disorders Respiratory History: Reports: Hx Pneumonia, Hx Seasonal Allergies, Other Respiratory Problems/Disorders - hx pneumonia in december Denies: Hx Chronic Obstructive Pulmonary Disease (COPD) GI History: Denies: Other GI Disorders History: Reports: Hx Benign Prostatic Hyperplasia, Hx Kidney Stones - 15 YEARS AGO NONE SINCE, Hx Renal Disease, Other Problems/Disorders - chronic kidney disease, 10/18 l kidney removal, UTI Denies: Hx Dialysis Musculoskeletal History: Reports: Hx Bursitis - BILATERAL SHOULDER YEARS AGO, NO PROBLEM NOW Denies: Hx Arthritis, Hx Rheumatoid Arthritis, Hx Back Problems, Hx Osteoporosis Sensory History: Reports: Hx Contacts or Glasses Denies: Hx Hearing Aid Opthamlomology History: Reports: Hx Contacts or Glasses Neurological History: Reports: Hx Headaches - not too bad, takes tylenol for them Denies: Hx Dementia, Hx Seizures Psychiatric History: Denies: Hx Panic Disorder - Cancer History Cancer Type, Location and Year: kidney dx 10/2010 - Lt NEPHRECTOMY by dr. vora at [facility] Chemotherapy: Yes - current Hx Radiation Therapy: No Hx Palliative Cancer Treatment: No - Surgical History Surgery Procedure, Year, and Place: left nephrectomy 10/27/10. inguinal hernia repair x 2 ;. powerport placement - [facility] by dr. alas 05/25 Hx Anesthesia Reactions: No - Immunization History Date of Tetanus Vaccine: Unk Date of Influenza Vaccine: Fall 2011 Infectious Disease History: Yes Infectious Disease History: Reports: Hx Tuberculosis - 60 years ago Denies: Traveled Outside the [place] in Last 30 Days - Family History Known Family History: Positive: Hypertension - Social History Alcohol Use: Daily Alcohol Amount: 1 glass wine Hx Substance Use: No Substance Use Type: Reports: None Hx Tobacco Use: Yes Smoking Status (MU): Former Smoker Type: Cigarettes Amount Used/How Often: 1 ppd Length of Time of Smoking/Using Tobacco: 30 years Have You Smoked in the Last Year: No Review of Systems Negative: Fever Positive: Weakness - to LLE (onset 15:30, spontaneous resolution). Negative: Slurred Speech All Other Systems Reviewed And Are Negative: Yes Physical Exam Triage Information Reviewed: Yes Vital Signs On Initial Exam: Initial Vitals Temp Pulse Resp BP Pulse Ox 97.4 F 66 20 117/49 97 03/24/17 16:29 03/24/17 16:29 03/24/17 16:29 03/24/17 16:29 03/24/17 16:29 Vital Signs Reviewed: Yes Appearance: Positive: Well-Appearing, No Pain Distress Skin: Positive: Warm, Skin Color Reflects Adequate Perfusion, Dry Head/Face: Positive: Normal Head/Face Inspection Eyes: Positive: Normal ENT: Positive: Normal ENT inspection Neck: Positive: Supple, Nontender Respiratory/Lung Sounds: Positive: Clear to Auscultation, Breath Sounds Present Cardiovascular: Positive: RRR Abdomen Description: Positive: Nontender, Soft Bowel Sounds: Positive: Present Musculoskeletal: Positive: Normal Neurological: Positive: Normal, Sensory/Motor Intact, Alert, Oriented to Person Place, Time, CN Intact II-III Psychiatric: Positive: Normal, Affect/Mood Appropriate Diagnostics - Vital Signs Vital Signs Temp Pulse Resp BP Pulse Ox 03/24/17 16:29 97.4 F 66 20 117/49 97 - Laboratory Lab Results: Lab Results 03/24/17 03/24/17 03/24/17 Range/Units 16:56 16:56 16:56 WBC 10.8 (3.5-10.8) 10^3/ul RBC 5.00 (4.0-5.4) 10^6/ul Hgb 13.1 L (14.0-18.0) g/dl Hct 40 L (42-52) % MCV 81 (80-94) fL MCH 26 L (27-31) pg MCHC 33 (31-36) g/dl RDW 17 H (10.5-15) % Plt Count 298 (150-450) 10^3/ul MPV 7 L (7.4-10.4) um3 Neut % (Auto) 60.9 (38-83) % Lymph % (Auto) 26.7 (25-47) % Jun[place] % (Auto) 6.8 (1-9) % Eos % (Auto) 4.5 (0-6) % Baso % (Auto) 1.1 (0-2) % Absolute Neuts (auto) 6.6 (1.5-7.7) 10^3/ul Absolute Lymphs (auto) 2.9 (1.0-4.8) 10^3/ul Absolute Monos (auto) 0.7 (0-0.8) 10^3/ul Absolute Eos (auto) 0.5 (0-0.6) 10^3/ul Absolute Basos (auto) 0.1 (0-0.2) 10^3/ul Absolute Nucleated RBC 0.01 10^3/ul Nucleated RBC % 0.1 INR (Anticoag Therapy) 1.02 (0.89-1.11) Sodium 130 L (133-145) mmol/L Potassium 4.5 (3.5-5.0) mmol/L Chloride 98 L (101-111) mmol/L Carbon Dioxide 26 (22-32) mmol/L Anion Gap 6 (2-11) mmol/L BUN 20 (6-24) mg/dL Creatinine 1.43 H (0.67-1.17) mg/dL Est GFR ( Amer) 60.6 (>60) Est GFR (Non-Af Amer) 47.1 (>60) BUN/Creatinine Ratio 14.0 (8-20) Glucose 102 H (70-100) mg/dL Lactic Acid (0.5-2.0) mmol/L Calcium 9.7 (8.6-10.3) mg/dL Total Bilirubin 0.30 (0.2-1.0) mg/dL AST 10 L (13-39) U/L ALT 7 (7-52) U/L Alkaline Phosphatase 82 (34-104) U/L Troponin I 0.01 (<0.04) ng/mL Total Protein 6.7 (6.4-8.9) g/dL Albumin 3.7 (3.2-5.2) g/dL Globulin 3.0 (2-4) g/dL Albumin/Globulin Ratio 1.2 (1-3) TSH 5.92 H (0.34-5.60) mcIU/mL 03/24/17 Range/Units 16:56 WBC (3.5-10.8) 10^3/ul RBC (4.0-5.4) 10^6/ul Hgb (14.0-18.0) g/dl Hct (42-52) % MCV (80-94) fL MCH (27-31) pg MCHC (31-36) g/dl RDW (10.5-15) % Plt Count (150-450) 10^3/ul MPV (7.4-10.4) um3 Neut % (Auto) (38-83) % Lymph % (Auto) (25-47) % Jun[place] % (Auto) (1-9) % Eos % (Auto) (0-6) % Baso % (Auto) (0-2) % Absolute Neuts (auto) (1.5-7.7) 10^3/ul Absolute Lymphs (auto) (1.0-4.8) 10^3/ul Absolute Monos (auto) (0-0.8) 10^3/ul Absolute Eos (auto) (0-0.6) 10^3/ul Absolute Basos (auto) (0-0.2) 10^3/ul Absolute Nucleated RBC 10^3/ul Nucleated RBC % INR (Anticoag Therapy) (0.89-1.11) Sodium (133-145) mmol/L Potassium (3.5-5.0) mmol/L Chloride (101-111) mmol/L Carbon Dioxide (22-32) mmol/L Anion Gap (2-11) mmol/L BUN (6-24) mg/dL Creatinine (0.67-1.17) mg/dL Est GFR ( Amer) (>60) Est GFR (Non-Af Amer) (>60) BUN/Creatinine Ratio (8-20) Glucose (70-100) mg/dL Lactic Acid 1.2 (0.5-2.0) mmol/L Calcium (8.6-10.3) mg/dL Total Bilirubin (0.2-1.0) mg/dL AST (13-39) U/L ALT (7-52) U/L Alkaline Phosphatase (34-104) U/L Troponin I (<0.04) ng/mL Total Protein (6.4-8.9) g/dL Albumin (3.2-5.2) g/dL Globulin (2-4) g/dL Albumin/Globulin Ratio (1-3) TSH (0.34-5.60) mcIU/mL Result Diagrams: 03/25/17 05:51 03/25/17 05:45 Lab Statement: Any lab studies that have been ordered have been reviewed, and results considered in the medical decision making process. - CT CT Brain CT Interpretation: No Acute Changes - No acute intracranial findings. ED Physician has reviewed this report and agrees. CT Interpretation Completed By: Radiologist - EKG 17:04 Cardiac Rate: NL - 65 BPM EKG Interpretation: Sinus rhythm. RBBB. NIH Scale - NIH Scale Level of Consciousness: Alert/Keenly Responsive Ask Patient the Month and His/Her Age: Both Correct Ask Pt to Open/Close Eyes and Maintenance Service Technician/Release Non-Paretic Hand: Both Correctly Best Gaze (Only Horizontal Eye Movement): Normal Visual Field Testing: No Visual Loss Facial Paresis-Pt to Smile & Close Eyes or Grimace Symmetry: Normal/Symmetrical Motor Function - Right Arm: No Drift-Holds 10 Seconds Motor Function - Left Arm: No Drift-Holds 10 Seconds Motor Function - Right Leg: No Drift-Holds 10 Seconds Motor Function - Left Leg: No Drift-Holds 10 Seconds Limb Ataxia-Must be out of Proportion to Weakness Present: Absent Sensory (Use Pinprick to Test Arms/Legs/Trunk/Face): Normal Best Language (Describe Picture, Name Items): No Aphasia Dysarthria (Read Several Words): Normal Extinction and Inattention: No Abnormality Total Score: 0 Course/Dx - Course Course Of Treatment: Mr. Morales presented with a possible TIA vs CVA. His initial W/U was negative and he was admitted to the hospialists. - Diagnoses Provider Diagnoses: TIA (transient ischemic attack) - Physician Notifications Discussed Care Of Patient With: Usha Sinha Time Discussed With Above Provider: 17:30 Instructed by Provider To: Other - I consulted with Dr. Sinha regarding patient care. I also consulted with Dr. Lynn, hospitalist, concerning patient care at 17:30. She admits the patient. Discharge - Discharge Plan Condition: Fair Disposition: ADMITTED TO [facility] Discharge Disposition Comment: By Dr. Lynn. The documentation as recorded by the Allison jeter Thomas accurately reflects the service I personally performed and the decisions made by me, Tonny Mendoza MD.
[2017-03-25 14:30] VITALS: BP 133/58
--- NOTE | 2017-03-25 15:12 | CONS ---
CONSULTATION REPORT: DATE OF CONSULTATION: 03/25/17. LOCATION: He is currently in the 432 Bed 1. REASON FOR CONSULTATION: Left leg weakness. HISTORY OF PRESENT ILLNESS: Mr. Morales is a very nice 86-year-old gentleman with a history of renal cell carcinoma, prior chemotherapy in the past. 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 He also has a history of hypertension, urinary retention, with BPH and the chr onic Kern catheter and CKD. He was in his usual state of health when he got up yesterday morning. He has someone come over to help him dress, when they were sitting up in bed he felt like he was christina sonya to the left and then got back up and then felt like he was leaning to the right, having some di fficulty maintaining his upright posture. He subsequently got up to walk. He usually uses a walker after his hip surgery earlier this year. He has not graduated to a cane at this point. When he go t up to walk he states that he had a difficult time moving his left leg for about 20 seconds and the n it resolved. He denies any wolf dizziness. He states that he had no vertigo. No nausea vomitin g. No headache. No vision changes. No shortness of breath. No chest pain. No speech or swallowi ng difficulties. He was otherwise in his usual state of health. The symptoms lasted for about 20 s econds and then he said he sat back down. When the ambulance came to get him they could not get the stretcher into his room, so he was able to walk from his room to the hallway on his walker without difficulty. This morning he states that he has also walked to the bathroom on his walker and feels like he is back to normal. He denied feeling any confusion at the time, any lightheadedness. He de nies any other focal weakness, numbness or tingling and basically feels like he is in his usual sta te of health and back to normal at this point; he is wanting to go home. He has had no further issu es overnight. He has no history of recent back pain, radicular pain, any bladder or bowel changes. PAST MEDICAL HISTORY: As noted above. PAST SURGICAL HISTORY: Includes the right hip surgery earlier this year. CURRENT MEDICATION LIST: Includes: 1. Tylenol 650 mg p.o. p.r.n. 2. Maalox p.r.n. 3. Norvasc 5 mg daily. 4. Aspirin 81 mg daily. 5. Zyrtec 10 mg p.o. q.a.m. 6. Peridex mouth wash. 7. Calcium D. 8. Clobetasol ointment. 9. Catapres 0.1 mg p.o. daily. 10. Flonase. 11. Latanoprost drops. 12. Metoprolol 25 mg p.o. b.i.d. ALLERGIES: He has allergies to PENICILLIN. FAMILY HISTORY: Noncontributory. SOCIAL HISTORY: He lives at home. He is . He has help that comes in regularly. He uses a walker since his surgery; very rare alcohol use and former smoker, but none recently. REVIEW OF SYSTEMS: Review of systems in 14-organ systems as noted above otherwise negative. PHYSICAL EXAMINATION: Vital Signs: Temp of 97.9, pulse rate of 75, respiratory rate of 16, O2 sat of 96%, 125/54, blood pressures have been stable during his admission. In general, he is a well-nou rished, well-developed gentleman in no acute distress. He is lying in his hospital bed. He is plea gabe, well dressed, well groomed. HEENT: Normocephalic atraumatic. Sclerae anicteric. Mucous mem branes are moist. Oropharynx is clear. Nares are patent. Neck is supple. No thyromegaly. No car otid bruits. No meningismus. Chest: Clear to auscultation bilaterally. Cardiovascular: Regular rate and rhythm. Abdomen is nontender, nondistended. Extremities: No clubbing, cyanosis, or edema . Skin is warm and dry without lesions. On neurologic exam, he is awake, alert, oriented x3. His speech is fluent. There is no dysarthria. Repetition is intact. Recall of recent and remote event s is intact. Vocabulary is intact. His mood is euthymic. Affect mood congruent. Cranial nerves I I through XII: Pupils are equal round and reactive to light. Extraocular muscles are intact. Visu al tejeda are full to confrontation. Face is symmetric. Sensation is intact throughout. Hearing is intact and symmetric bilaterally. Palate elevates symmetrically. Tongue is midline. Sternocleidom astoid and traps are 5/5 throughout. On motor exam he is spontaneously moving all extremities antig ravity. His tone is good. He has good resistance in the upper and lower extremities with 5/5 in th e upper extremities proximally and distally. In the left lower extremities he is 5/5 proximally and distally. In the right lower extremity he has some mild knee flexion, weakness. He states it is ch ronic from his surgery and some mild hip flexor weakness, again chronic from his surgery. Otherwise , his motor exam is intact in the right lower extremity. DTRs are 1+ in the biceps, brachioradialis , 1+ at the patella, absent at the ankles, equivocal Babinski's bilaterally. [place]-ui-ijmo and rap id alternating movements as well as heel to travis are intact without tremor and without dysdiadochoki nesia. Sensation is intact to light touch, pinprick, vibration, and proprioception throughout. Gai t: He stood up. He was able to stand on his own. With his walker, he was able to walk. He has a s low wide-based gait, but he states that this is his baseline. He does not feel any weakness in the left leg when walking. He is able to turn with his walker independently. LABORATORY DATA/DIAGNOSTIC STUDIES: Leukocyte esterase are 3+. WBCs are 2+. His CBC with diff thi s morning, hemoglobin of 12.7, hematocrit of 38. White count was normal. INR 1.05. Chemistry; he presented with a sodium of 130, currently 131 this morning. His creatinine is 1.29, 1.43 yesterday, glucose of 106 this morning. His TSH was 5.92. MRI on my read, I have reviewed the films, I see no evidence of any metastatic disease. No evidence of any new ischemic insults and he does have chron ic white matter changes, periventricular in nature. His brain CT yesterday showed no acute intracra nial findings. ASSESSMENT AND PLAN: Mr. Morales is an 86-year-old gentleman with a history of renal cell carcinoma w ith metastatic disease, presented to the hospital with a 20-second history of left leg weakness. He states that he cannot make it do what he wanted to do. He also had some imbalance when he was sitt ing on the bed leaning to the left and then to the right. These symptoms have resolved. He has had no further episodes. The final on his MRI is pending, but I see no evidence of new stroke or metas tatic disease. I see no evidence of cerebellar dysfunction on examination. He has no significant le ft leg weakness. No sensory changes. He does have chronic weakness of the right lower extremity, w romainh he says is secondary to his surgery in August. He also has chronic difficulty walking, uses a walker at home. On examination this morning he states that he feels that his walking is back to n ormal and he has had no new focal symptoms. The duration of the symptoms would be atypical for a TI A. He also is not having any back pain, any radicular pain to suggest any kind of metastasis to the spine, again given the length of time of his symptoms it would be unusual for this to be related to any spinal cord pathology. He did present with a sodium of 130, but this is likely chronic in nature and I doubt that it was contributing to his symptoms. At this point, the etiology of his transient left leg weakness remains unknown. My suspicions for TIA, metastatic disease, musculoskeletal dise ase is low, given the brief duration. He is wanting to go home. He is on an aspirin, blood pressur e is well controlled. He is a nondiabetic. He is a non-smoker. His TSH was elevated and suggests a follow up as an outpatient for his thyroid, continue physical therapy as an outpatient. I will be happy to follow him up upon discharge, but I think it is safe for him to go home at this point. Thank you for the opportunity to participate in his care. [id number]/[facility] #: [id number]
[2017-03-25] MEDS ORDERED: Tamsulosin CAP* 0.4 MG PO SCH (18:00)
--- NOTE | 2017-03-26 02:06 | DS ---
CC: Dr. Cordova DISCHARGE SUMMARY: DATE OF ADMISSION: DATE OF DISCHARGE: 03/25/17 HISTORY OF PRESENT ILLNESS: This 86-year-old man presented with his left leg either being weak or l ocking up. He was in the afternoon at home, he was walking with his walker. He described to me clark t his left leg locked, although he described it as weakness with others. He had come out of the [facility] just before this happened. I note he had a right hip arthroplasty for metastatic cancer in [facility] of this year. The patient was admitted to the telemetry unit. He had an MRI, which showed no acute changes. He h ad no significant arrhythmias. He had no further neurological symptoms at all. He was able to walk with his walker as well as usual. His routine lab work did not show any significant abnormalities. His sodium was 130 with a repeat of 131, not much different from previous values. FINAL DIAGNOSES: 1. Arthritis. 2. Metastatic renal carcinoma. 3. Chronic kidney disease. 4. Hypertension. 5. 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 DISCHARGE MEDICATIONS: 1. Latanoprost 0.005% one drop both eyes h.s. 2. Loratadine 10 mg daily p.r.n. 3. Metoprolol tartrate 25 mg b.i.d. 4. Hydrocortisone 2.5% rectal as needed. 5. Clobetasol 0.05% ointment b.i.d. p.r.n. 6. Cod liver oil 1250 units daily. 7. Aspirin 81 mg daily. 8. Fluticasone nasal spray 2 sprays both nares at bedtime. 9. Amlodipine 5 mg daily. 10. Clonidine 0.1 mg daily. 11. Tamsulosin 0.4 mg h.s. 12. Cholecalciferol 400 units daily. 13. Chlorhexidine mouthwash 0.12% as prescribed. [id number]/[facility] #: [id number]
== END 2017-03-25 15:55 | disposition home or self-care (01) ==
LOC: ED 16:02 → MEDTELE 17:34
PROVIDERS: ADMIT Internal Medicine; ATTEND Internal Medicine
DX: M19.90 Unspecified osteoarthritis, unspecified site (principal); C79.00 Secondary malignant neoplasm of unspecified kidney and renal pelvis; C79.51 Secondary malignant neoplasm of bone; C78.00 Secondary malignant neoplasm of unspecified lung; C78.89 Secondary malignant neoplasm of other digestive organs; I12.9 Hypertensive chronic kidney disease with stage 1 through stage 4 chronic kidney disease, or unspecified chronic kidney disease; N15.9 Renal tubulo-interstitial disease, unspecified; N40.1 Benign prostatic hyperplasia with lower urinary tract symptoms; R33.8 Other retention of urine; Z88.0 Allergy status to penicillin; Z87.891 Personal history of nicotine dependence; E87.1 Hypo-osmolality and hyponatremia; Z79.82 Long term (current) use of aspirin; Z79.899 Other long term (current) drug therapy
CPT/HCPCS: 36415; 70450; 70553; 80048; 80053; 81003; 81015; 83605; 84443; 84484; 85025; 85610; 87077; 87086; 87186; 93005; 96360; 99284; A9270-GY; A9579; G0378; G8978-GP-CI; G8979-GP-CI; G8980-GP-CI; J1642

== ENCOUNTER 2017-04-06 19:57 | Emergency (ER) | payer MEDICARE, OTHER ==
[2017-04-06 23:15] VITALS: BP 134/64
--- NOTE | 2017-04-12 11:36 | UC ---
Complaint Male HPI - HPI Summary HPI Summary: Patient presents to the ED with CC of leaking urine around the catheter which began this morning. He has had a catheter since August for kidney CA complications. He states he feels as though he does not have a full bladder. Denies this problem before. Notes to no fevers, sweats or chills. Denies other systemic signs of illness. - History of Current Complaint Chief Complaint: EDUrogenitalProblems Stated Complaint: CATHETER PROBLEM Time Seen by Provider: 04/06/17 21:57 Hx Obtained From: Patient Onset/Duration: Sudden Onset Timing: Constant Severity Initially: Mild Severity Currently: Mild Pain Intensity: 0 Pain Scale Used: 0-10 Numeric Location: None Associated Signs And Symptoms: Positive: Negative - Risk Factors Testicular Torsion: Negative - Allergies/Home Medications Allergies/Adverse Reactions: Allergies Allergy/AdvReac Type Severity Reaction Status Date / Time Penicillins AdvReac DIZZY, Verified 03/05/17 17:49 DISORIENTED HAYFEVER-SEASONAL Allergy POST NASAL Uncoded 03/05/17 17:49 DRIP PMH/Surg Hx/FS Hx/Imm Hx Previously Healthy: Yes Other History Of: Negative For: Anticoagulant Therapy - Surgical History Surgical History: Yes Surgery Procedure, Year, and Place: left nephrectomy 10/27/10. inguinal hernia repair x 2 ;. powerport placement - [facility] by dr. alas 05/25 - Family History Known Family History: Positive: Hypertension - Social History Occupation: Retired Lives: With Family Alcohol Use: Daily Alcohol Amount: 1 glass wine Substance Use Type: None Smoking Status (MU): Former Smoker Type: Cigarettes Amount Used/How Often: 1 ppd Length of Time of Smoking/Using Tobacco: 30 years Have You Smoked in the Last Year: No When Did the Patient Quit Smoking/Using Tobacco: 1976 - Immunization History Most Recent Influenza Vaccination: 2017 Most Recent Tetanus Shot: 2014 Most Recent Pneumonia Vaccination: in past date unsure Review of Systems Constitutional: Negative Skin: Negative Respiratory: Negative Cardiovascular: Negative Genitourinary: Other - catheter leaking - cudet Motor: Negative Musculoskeletal: Negative Neurological: Negative Is Patient Immunocompromised?: No All Other Systems Reviewed And Are Negative: Yes Physical Exam Triage Information Reviewed: Yes Appearance: Well-Appearing, No Pain Distress, Well-Nourished Vital Signs: Initial Vital Signs Temp 97.0 F 04/06/17 19:59 Pulse 73 04/06/17 19:59 Resp 14 04/06/17 19:59 BP 146/62 04/06/17 19:59 Pulse Ox 98 04/06/17 19:59 Vital Signs Reviewed: Yes Eye Exam: Normal Eyes: Positive: Conjunctiva Clear Neck exam: Normal Neck: Positive: Supple, No Lymphadenopathy Respiratory Exam: Normal Respiratory: Positive: Chest non-tender, Lungs clear Cardiovascular Exam: Normal Cardiovascular: Positive: RRR Musculoskeletal Exam: Normal Musculoskeletal: Positive: Strength Intact Neurological Exam: Normal Neurological: Positive: Alert Psychological: Positive: Normal Response To Family Skin Exam: Normal Complaint Male Course/Dx - Course Course Of Treatment: Catheter leaking. Skin around penis is examined and no lesions are noted. Appears to be a default with the catheter itself and not placement or other physical issues. VS stable. He denies pain or feeling of full bladder. Denies fevers, sweats, chills or other signs of a systemic illness. Cudet is replaced by the RN. Flowing generously prior to discharge. Nothing further at this time. - Differential Dx/Diagnosis Differential Diagnosis/HQI/PQRI: Cancer, Urinary Tract Infection, Other - Catheter problem Provider Diagnoses: Leaking Catheter Discharge - Discharge Plan Condition: Stable Disposition: HOME Patient Education Materials: Urinary Retention in Men (ED), Kern Catheter Placement and Care (ED) Referrals: Jake Cordova MD [Primary Care Provider] - Additional Instructions: Follow up with your PCP as needed If you develop any worsening catheter symptoms or issues - please return to the ED
== END 2017-04-06 23:15 | disposition home or self-care (01) ==
LOC: ED 19:57
DX: T83.038A Leakage of other urinary catheter, initial encounter (principal); Z87.891 Personal history of nicotine dependence; Z88.0 Allergy status to penicillin; Z85.528 Personal history of other malignant neoplasm of kidney
CPT/HCPCS: 99281